=== PATIENT | female | born 1955 | race Caucasian/White ===

== ENCOUNTER → 2018-01-09 | Outpatient (CLI) | payer MEDICARE, OTHER ==
--- NOTE | 2018-01-09 12:43 | CT ---
EXAMINATION TYPE: CT chest wo con DATE OF EXAM: 01/09/2018 COMPARISON: NONE HISTORY: Abnormal Chest Xray CT DLP: 667 mGycm. Automated Exposure Control for Dose Reduction was Utilized. TECHNIQUE: CT scan of the thorax is performed without IV contrast. FINDINGS: LUNGS: There is anterior scarring left upper lobe near axial image 17. There is additional linear s carring near level of lingula coronal image 57. There is additional linear scarring in the inferior l ingula axial image 36. There is some patchy bibasilar linear scarring and/or atelectasis just above d iaphragm bilaterally. No suspicious parenchymal nodule or mass is present. There is no pleural effusi on or pneumothorax seen. The tracheobronchial tree is patent. MEDIASTINUM: Lack of IV contrast is noted to limit evaluation for mediastinal and especially hilar ad enopathy. There are no definitive greater than 1 cm hilar or mediastinal lymph nodes. There are prom inent but subcentimeter lymph nodes in the mediastinum including prevascular, paratracheal, and super ior mediastinal regions. No cardiomegaly or pericardial effusion is seen. Coronary artery calcificati on is present which is noted marker for coronary artery disease. OTHER: Small hiatal hernia is present. Liver is diffusely low dense relative to spleen consistent wit h fatty infiltration. Cholecystectomy clips are noted. There is moderate to severe multilevel spurring in the thoracic spine. Slight scoliotic curvature is present. Prominent posterior spurs are effaces anterior thecal sac in the mid thoracic spine on sagit juan miguel images. IMPRESSION: Chronic parenchymal changes most prominent in the left lung. No acute pulmonary process. No suspicious mass or adenopathy seen.
--- NOTE | 2018-01-09 14:53 | US ---
EXAMINATION TYPE: US kidneys/renal and bladder DATE OF EXAM: 01/09/2018 COMPARISON: NONE CLINICAL HISTORY: E11.65 Type 2 Diabetes Mellitus with hyperglycemia. abnormal labs EXAM MEASUREMENTS: Right Kidney: 11.1 x 4.5 x 4.6 cm Left Kidney: 10.6 x 5.2 x 4.8 cm Right Kidney: No hydronephrosis or masses seen Left Kidney: No hydronephrosis or masses seen Bladder: not well distended Bilateral Jets seen: No Bladder is limited by incomplete distention. No nephrolithiasis. IMPRESSION: No definite acute process. Noted is made that the bladder is nondistended and therefore could not be evaluated.
== END ==
LOC: RADCTMAIN 11:07
PROVIDERS: ATTEND Family Medicine
DX: I10 Essential (primary) hypertension (principal); J98.4 Other disorders of lung; E11.65 Type 2 diabetes mellitus with hyperglycemia
CPT/HCPCS: 71250; 76770

== ENCOUNTER 2018-01-29 03:34 | Inpatient (IN) | payer MEDICARE, OTHER ==
[2018-01-29] MEDS ORDERED: SODIUM CHLORIDE 0.9% 1,000 ML IV STA (03:55)
[2018-01-29] MEDS ORDERED: ONDANSETRON 4 MG/2 ML VIAL IVP STA (03:55)
[2018-01-29] MEDS ORDERED: MORPHINE SULFATE 4 MG/ML SYRINGE IV STA (03:55)
--- NOTE | 2018-01-29 04:05 | ED ---
Abdominal Pain HPI - General Chief Complaint: Abdominal Pain Stated Complaint: Abdominal Pain, Nausea Time Seen by Provider: 01/29/18 03:48 Source: patient, EMS Mode of arrival: EMS Limitations: no limitations - History of Present Illness Initial Comments: 62-year-old female patient presents to the emergency department today for complaints of severe right lower quadrant abdominal pain, diarrhea, and vomiting. Patient states she's been having discomfort to the right lower quadrant for the last 3 weeks. States that her primary care physician ordered imaging but she started becoming more ill today so presented here for further evaluation. Patient states the pain in her lower abdomen is sharp and stabbing. She denies any radiation of the pain to her back. States that she has had 4 episodes of vomiting and approximate 10 loose stools prior to coming in. Patient states that she does have a hemorrhoid which is causing a small amount of blood in the stool. She states she is having some dysuria but denies any hematuria or urinary frequency. Patient denies any fevers or chills. Denies any recent travel or sick contacts. Patient has had cholecystectomy in the past but no other abdominal surgeries. Patient denies any recent rash, shortness breath, chest pain, back pain, numbness, tingling, dizziness, weakness , headache, visual changes, or any other complaints. - Related Data Home Medications Medication Instructions Recorded Confirmed Aspirin 81 mg PO DAILY 09/27/13 10/13/13 Fenofibrate Nanocrystallized 48 mg PO HS 09/27/13 10/13/13 [Fenofibrate] Fluticasone/Salmeterol [Advair 1 puff INHALATION Q12HR PRN 09/27/13 10/13/13 250-50 Diskus] Glimepiride [Amaryl] 4 mg PO [id number] 09/27/13 10/13/13 Lisinopril [Zestril] 2.5 mg PO DAILY 09/27/13 10/13/13 Meclizine [Antivert] 12.5 mg PO DIRECTED PRN 09/27/13 10/13/13 Omeprazole [PriLOSEC] 20 mg PO HS PRN 09/27/13 10/13/13 metFORMIN HCL 1,000 mg PO BID 09/27/13 10/13/13 Allergies Allergy/AdvReac Type Severity Reaction Status Date / Time codeine phosphate Allergy Unknown Unknown Verified 10/13/13 08:04 [From Tylenol-Codeine #3] Review of Systems ROS Statement: Those systems with pertinent positive or pertinent negative responses have been documented in the HPI. ROS Other: All systems not noted in ROS Statement are negative. Past Medical History Past Medical History: Asthma, Diabetes Mellitus, GERD/Reflux, Hyperlipidemia, Hypertension Additional Past Medical History / Comment(s): PROBLEMS WITH "EQUALIBRIUM" History of Any Multi-Drug Resistant Organisms: None Reported Past Surgical History: Cholecystectomy, Orthopedic Surgery Additional Past Surgical History / Comment(s): KNEE CAPS REPLACED BRADEN, D&C, Past Anesthesia/Blood Transfusion Reactions: Motion Sickness, Postoperative Nausea & Vomiting (PONV) Smoking Status: Former smoker Past Alcohol Use History: None Reported Past Drug Use History: None Reported General Exam Limitations: no limitations General appearance: alert, in no apparent distress, other (This well-developed, well-nourished adult female patient in no acute distress. Vital signs upon presentation are temperature 97.5F, pulse 93, respirations 18, blood pressure 147/70, pulse ox 96% on room air.) Eye exam: Present: normal appearance, PERRL, EOMI. Absent: scleral icterus, conjunctival injection, periorbital swelling ENT exam: Present: normal exam, normal oropharynx, mucous membranes moist Respiratory exam: Present: normal lung sounds bilaterally. Absent: respiratory distress, wheezes, rales, rhonchi, stridor Cardiovascular Exam: Present: regular rate, normal rhythm, normal heart sounds. Absent: systolic murmur, diastolic murmur, rubs, gallop, clicks GI/Abdominal exam: Present: soft, tenderness (Right lower quadrant tenderness, midepigastric tenderness), guarding, normal bowel sounds. Absent: distended, rebound, rigid Course Vital Signs 01/29/18 03:41 Temperature 97.5 F L Pulse Rate 93 Respiratory 18 Rate Blood Pressure 147/70 O2 Sat by Pulse 96 Oximetry Medical Decision Making - Medical Decision Making 62-year-old female patient percents to the emergency department today for evaluation of right lower quadrant abdominal pain, vomiting, and diarrhea. Physical examination did reveal exquisite right lower quadrant abdominal tenderness. Labs reviewed and did reveal an elevated white blood cell count at 13.2. Urinalysis was negative for any evidence of infection. Did perform CT the abdomen and pelvis which did show possibility of ileus versus enteritis. Appendix was not well visualized on this exam. With patient's right lower quadrant tenderness there is concern for appendicitis will admit for observation for further evaluation by surgery. - Lab Data Result diagrams: 01/29/18 04:35 01/29/18 04:35 Lab Results 01/29/18 01/29/18 01/29/18 Range/Units 04:35 04:35 04:35 WBC 13.2 H (3.8-10.6) k/uL RBC 4.18 (3.80-5.40) m/uL Hgb 12.6 (11.4-16.0) gm/dL Hct 37.8 (34.0-46.0) % MCV 90.3 (80.0-100.0) fL MCH 30.1 (25.0-35.0) pg MCHC 33.4 (31.0-37.0) g/dL RDW 13.9 (11.5-15.5) % Plt Count 294 (150-450) k/uL Neutrophils % 75 % Lymphocytes % 15 % Monocytes % 5 % Eosinophils % 4 % Basophils % 1 % Neutrophils # 9.9 H (1.3-7.7) k/uL Lymphocytes # 1.9 (1.0-4.8) k/uL Monocytes # 0.6 (0-1.0) k/uL Eosinophils # 0.6 (0-0.7) k/uL Basophils # 0.1 (0-0.2) k/uL Sodium 135 L (137-145) mmol/L Potassium 5.6 H (3.5-5.1) mmol/L Chloride 103 (98-107) mmol/L Carbon Dioxide 24 (22-30) mmol/L Anion Gap 8 mmol/L BUN 17 (7-17) mg/dL Creatinine 0.81 (0.52-1.04) mg/dL Est GFR (CKD-EPI)AfAm >90 (>60 ml/min/1.73 sqM) Est GFR (CKD-EPI)NonAf 79 (>60 ml/min/1.73 sqM) Glucose 178 H (74-99) mg/dL Plasma Lactic Acid David 1.8 (0.7-2.0) mmol/L Calcium 9.8 (8.4-10.2) mg/dL Total Bilirubin 0.7 (0.2-1.3) mg/dL AST 32 (14-36) U/L ALT 26 (9-52) U/L Alkaline Phosphatase 103 (38-126) U/L Total Protein 7.2 (6.3-8.2) g/dL Albumin 3.7 (3.5-5.0) g/dL Amylase 85 (30-110) U/L Lipase 126 (23-300) U/L Urine Color Urine Appearance (Clear) Urine pH (5.0-8.0) Ur Specific [place] (1.001-1.035) Urine Protein (Negative) Urine Glucose (UA) (Negative) Urine Ketones (Negative) Urine Blood (Negative) Urine Nitrite (Negative) Urine Bilirubin (Negative) Urine Urobilinogen (<2.0) mg/dL Ur Leukocyte Esterase (Negative) 01/29/18 Range/Units 06:00 WBC (3.8-10.6) k/uL RBC (3.80-5.40) m/uL Hgb (11.4-16.0) gm/dL Hct (34.0-46.0) % MCV (80.0-100.0) fL MCH (25.0-35.0) pg MCHC (31.0-37.0) g/dL RDW (11.5-15.5) % Plt Count (150-450) k/uL Neutrophils % % Lymphocytes % % Monocytes % % Eosinophils % % Basophils % % Neutrophils # (1.3-7.7) k/uL Lymphocytes # (1.0-4.8) k/uL Monocytes # (0-1.0) k/uL Eosinophils # (0-0.7) k/uL Basophils # (0-0.2) k/uL Sodium (137-145) mmol/L Potassium (3.5-5.1) mmol/L Chloride (98-107) mmol/L Carbon Dioxide (22-30) mmol/L Anion Gap mmol/L BUN (7-17) mg/dL Creatinine (0.52-1.04) mg/dL Est GFR (CKD-EPI)AfAm (>60 ml/min/1.73 sqM) Est GFR (CKD-EPI)NonAf (>60 ml/min/1.73 sqM) Glucose (74-99) mg/dL Plasma Lactic Acid David (0.7-2.0) mmol/L Calcium (8.4-10.2) mg/dL Total Bilirubin (0.2-1.3) mg/dL AST (14-36) U/L ALT (9-52) U/L Alkaline Phosphatase (38-126) U/L Total Protein (6.3-8.2) g/dL Albumin (3.5-5.0) g/dL Amylase (30-110) U/L Lipase (23-300) U/L Urine Color Yellow Urine Appearance Clear (Clear) Urine pH 5.0 (5.0-8.0) Ur Specific [place] 1.027 (1.001-1.035) Urine Protein Negative (Negative) Urine Glucose (UA) Negative (Negative) Urine Ketones Negative (Negative) Urine Blood Negative (Negative) Urine Nitrite Negative (Negative) Urine Bilirubin Negative (Negative) Urine Urobilinogen <2.0 (<2.0) mg/dL Ur Leukocyte Esterase Negative (Negative) - Radiology Data Radiology results: report reviewed, image reviewed CT abdomen and pelvis with contrast was obtained. Report is reviewed in its entirety. Impression by Dr. Avina reports nonspecific bowel gas pattern with scattered air-fluid levels seen in the small and large bowel loops which may reflect mild ileus. Scattered thickened small bowel loops which may reflect enteritis. Appendix not well visualized. There is concern for acute appendicitis consider repeating image with oral contrast. Disposition Clinical Impression: Abdominal pain, Gastroenteritis Narrative: Possible Appendicitis Disposition: ADMITTED IP TO THIS [facility] Condition: Serious Referrals: Rochelle Parrish MD [Primary Care Provider] - 1-2 days Decision to Admit Reason: Admit from EC Decision Date: 01/29/18 Decision Time: 06:48
[2018-01-29 05:00] LABS: Basophils # (A) 0.1 k/uL (0-0.2); Basophils % (A) 1 %; Eosinophils # (A) 0.6 k/uL (0-0.7); Eosinophils % (A) 4 %; HCT 37.8 % (34.0-46.0); HGB 12.6 gm/dL (11.4-16.0); Lymphocytes # (A) 1.9 k/uL (1.0-4.8); Lymphocytes % (A) 15 %; MCH 30.1 pg (25.0-35.0); MCHC 33.4 g/dL (31.0-37.0); MCV 90.3 fL (80.0-100.0); Mean Platelet Volume 8.2; Monocytes # (A) 0.6 k/uL (0-1.0); Monocytes % (A) 5 %; Neutrophils # (A) 9.9 k/uL (1.3-7.7); Neutrophils % (A) 75 %; Platelet Count 294 k/uL (150-450); RBC 4.18 m/uL (3.80-5.40); RDW 13.9 % (11.5-15.5); WBC 13.2 k/uL (3.8-10.6)
[2018-01-29 05:22] LABS: ALT 26 U/L (9-52); AST 32 U/L (14-36); Albumin 3.7 g/dL (3.5-5.0); Alkaline Phosphatase 103 U/L (38-126); Amylase 85 U/L (30-110); Anion Gap 8 mmol/L; Blood Urea Nitrogen 17 mg/dL (7-17); Calcium 9.8 mg/dL (8.4-10.2); Carbon Dioxide 24 mmol/L (22-30); Chloride 103 mmol/L (98-107); Glucose 178 mg/dL (74-99); Lipase 126 U/L (23-300); Sodium 135 mmol/L (137-145); Total Bilirubin 0.7 mg/dL (0.2-1.3); Total Protein 7.2 g/dL (6.3-8.2)
[2018-01-29 05:39] LABS: Potassium 5.6 mmol/L (3.5-5.1)
--- NOTE | 2018-01-29 06:21 | CT ---
EXAM: CT Abdomen and Pelvis With Intravenous Contrast CLINICAL HISTORY: ITS.REASON CT Reason: abdominal pain TECHNIQUE: Axial computed tomography images of the abdomen and pelvis with intravenous contrast. CTDI is 23.4, 24.2 mGy and DLP is 1850.9 mGy-cm. This CT exam was performed using one or more of the following dose reduction techniques: automated exposure control, adjustment of the mA and/or kV according to patient size, and/or use of iterative reconstruction technique. COMPARISON: No relevant prior studies available. FINDINGS: Lung bases: Streaky density in the visualized lingula likely atelectasis. ABDOMEN: Liver: Fatty liver. Gallbladder and bile ducts: Status post cholecystectomy. No ductal dilation. Pancreas: Unremarkable. No mass. No ductal dilation. Spleen: Unremarkable. No splenomegaly. Adrenals: Unremarkable. No mass. Kidneys and ureters: Mild nonspecific soft tissue stranding in the perinephric space. Stomach and bowel: Diverticulosis. Thickening of proximal small bowel loop in the left upper abdomen. Additional thickened small bowel loops in the right lower abdomen with adjacent soft tissue stranding and fluid along the right lower mesentery. These findings are nonspecific. These may reflect inflammatory/infectious enteritis. Appendix is not well visualized. If there is concern for acute appendicitis, consider repeat imaging with oral contrast for better visualization. Scattered air-fluid levels in small and large bowel loops, nonspecific. PELVIS: Appendix: Appendix not well visualized. Bladder: Unremarkable. No mass. Reproductive: Unremarkable as visualized. ABDOMEN and PELVIS: Intraperitoneal space: No free air. No significant fluid collection. Bones/joints: Degenerative changes in the visualized spine. No acute fracture. No dislocation. Soft tissues: Unremarkable. Vasculature: Unremarkable. No abdominal aortic aneurysm. Lymph nodes: Unremarkable. No enlarged lymph nodes. IMPRESSION: Nonspecific bowel gas pattern with scattered air-fluid levels seen in small and large bowel loops which may reflect mild ileus. Scattered thickened small bowel loops which may reflect enteritis. Appendix not well visualized. If there is concern for acute appendicitis, consider repeat imaging with oral contrast. No free air
[2018-01-29 06:36] LABS: Appearance,Urine Clear (Clear); Bilirubin,Urine Negative (Negative); Blood,Urine Negative (Negative); Color,Urine Yellow; Glucose,Urine (UA) Negative (Negative); Ketones,Urine Negative (Negative); Leukocyte Esterase,Urine Negative (Negative); Nitrite,Urine Negative (Negative); Protein,Urine Negative (Negative); Specific Gravity,Urine 1.027 (1.001-1.035); Urobilinogen,Urine <2.0 mg/dL (<2.0)
[2018-01-29] MEDS ORDERED: NALOXONE 0.4 MG/ML 1 ML VIAL IV PRN (06:43)
[2018-01-29] MEDS ORDERED: FAMOTIDINE 20 MG/2 ML VIAL IV STA (06:48)
[2018-01-29] MEDS: SODIUM CHLORIDE 0.9% 1,000 ML IV SCH (07:39)
[2018-01-29] MEDS: ONDANSETRON 4 MG/2 ML VIAL IVP PRN (08:27)
[2018-01-29] MEDS ORDERED: IOPAMIDOL-300 CONTRAST 30 ML VIAL (ORAL USE) PO PRN (09:29)
--- NOTE | 2018-01-29 09:29 | P.GSCN ---
<Fariba Dave - Last Filed: 01/29/18 14:01> History of Present Illness Consult date: 01/29/18 Reason for Consult: Abdominal pain History of present illness: 62-year-old female presented to the emergency room on the day of admission with a chief complaint of developing persistent right lower quadrant abdominal pain associated with nausea vomiting diarrhea. Patient stated that the discomfort in the right lower quadrant started about 3 weeks ago became more symptomatic. Patient stated that prior to coming into the emergency room she had at least 10 watery loose stools. Patient denied any pain with the loose stools also denied any bright red blood in the toilet bowl. Patient states that she was told she had hemorrhoids and some of the stools may have had a small amount of blood in. Patient denied any prior episodes. Patient states that she had been started on an antibiotic 10 days prior for bronchitis. At The time of my exam patient has tenderness to the right lower quadrant which patient reports is worse with movement Currently patient states a nausea sensation has improved due to the anti- emetics but continues to have tenderness in the right lower quadrant of the abdomen. Past surgical history cholecystectomy greater than 20 years prior Patient had a CAT scan of the abdomen pelvis with IV contrast done on January 29 reviewing the report no free air appendix not well visualized scattered thickening of small bowel loops which may reflect enteritis white count 13.2 potassium 5.6 AST ALT not elevated total bili 0.7 urinalysis negative lipase 126 amylase 85 Review of Systems Essentially unremarkable except as mentioned in the present illness Past Medical History Past Medical History: Asthma, Diabetes Mellitus, GERD/Reflux, Hyperlipidemia, Hypertension Additional Past Medical History / Comment(s): PROBLEMS WITH "EQUALIBRIUM" History of Any Multi-Drug Resistant Organisms: None Reported Past Surgical History: Cholecystectomy, Orthopedic Surgery Additional Past Surgical History / Comment(s): KNEE CAPS REPLACED BRADEN, D&C, Past Anesthesia/Blood Transfusion Reactions: Motion Sickness, Postoperative Nausea & Vomiting (PONV) Smoking Status: Former smoker Past Alcohol Use History: None Reported Past Drug Use History: None Reported - Past Family History Mother Family Medical History: Cancer, CVA/TIA, Diabetes Mellitus Additional Family Medical History / Comment(s): bowel ca Medications and Allergies Home Medications Medication Instructions Recorded Confirmed Type metFORMIN HCL 1,000 mg PO BID 09/27/13 01/29/18 History Acetaminophen Tab [Tylenol Tab] 500 mg PO Q6HR PRN 01/29/18 01/29/18 History Albuterol Inhaler [Ventolin Hfa 2 puff INHALATION RT-Q6H PRN 01/29/18 01/29/18 History Inhaler] Albuterol Nebulized [Ventolin 2.5 mg INHALATION RT-TID PRN 01/29/18 01/29/18 History Nebulized] Allopurinol [Zyloprim] 100 mg PO DAILY 01/29/18 01/29/18 History Atorvastatin [Lipitor] 20 mg PO HS 01/29/18 01/29/18 History Budesonide/Formoterol Fumarate 2 puff INHALATION RT-BID 01/29/18 01/29/18 History [Symbicort 80-4.5 Mcg Inhaler] Lisinopril [Zestril] 20 mg PO DAILY 01/29/18 01/29/18 History Baldwin-3 Acid Ethyl Esters [Lovaza] 4 gm PO BID 01/29/18 01/29/18 History Omeprazole 20 mg PO HS 01/29/18 01/29/18 History Ranitidine HCl [Zantac] 150 mg PO BID 01/29/18 01/29/18 History Allergies Allergy/AdvReac Type Severity Reaction Status Date / Time codeine phosphate Allergy Unknown Unknown Verified 01/29/18 07:18 [From Tylenol-Codeine #3] Surgical - Exam Vital Signs Temp Pulse Resp BP Pulse Ox 97.5 F L 93 18 147/70 96 01/29/18 03:41 01/29/18 03:41 01/29/18 03:41 01/29/18 03:41 01/29/18 03:41 GENERAL APPEARANCE: patient is alert, oriented, in no acute distress. VITAL SIGNS: Reviewed HEENT: Head is normocephalic and atraumatic. Pupils are equal and reactive. The nares are patent. Oropharynx is clear without lesions. NECK: Supple without lymphadenopathy. Traches midline. HEART: S1, S2. Regular rate and rhythm. Denying chest pain no murmur LUNGS: No crackles or wheezes are heard. Adequate air movement bilaterally no shortness of breath ABDOMEN: Soft, positive mild tenderness right lower quadrant of the abdomen nondistended with active bowel sounds. No peritoneal signs. No palpable organomegaly or masses. Reports a nausea sensation no emesis reportedly having loose stools this morning EXTREMITIES: Normal skin color and turgor. No cyanosis, rash, ulceration, clubbing or edema. Radial pedal pulses are 2/4 bilaterally. NEUROLOGICAL: No focal deficits. Strength and sensation are grossly intact. Results - Labs 01/29/18 04:35 01/29/18 04:35 Abnormal Lab Results - Last 24 Hours (Table) 01/29/18 01/29/18 Range/Units 04:35 04:35 WBC 13.2 H (3.8-10.6) k/uL Neutrophils # 9.9 H (1.3-7.7) k/uL Sodium 135 L (137-145) mmol/L Potassium 5.6 H (3.5-5.1) mmol/L Glucose 178 H (74-99) mg/dL Diabetes panel 01/29/18 Range/Units 04:35 Sodium 135 L (137-145) mmol/L Potassium 5.6 H (3.5-5.1) mmol/L Chloride 103 (98-107) mmol/L Carbon Dioxide 24 (22-30) mmol/L BUN 17 (7-17) mg/dL Creatinine 0.81 (0.52-1.04) mg/dL Glucose 178 H (74-99) mg/dL Calcium 9.8 (8.4-10.2) mg/dL AST 32 (14-36) U/L ALT 26 (9-52) U/L Alkaline Phosphatase 103 (38-126) U/L Total Protein 7.2 (6.3-8.2) g/dL Albumin 3.7 (3.5-5.0) g/dL Calcium panel 01/29/18 Range/Units 04:35 Calcium 9.8 (8.4-10.2) mg/dL Albumin 3.7 (3.5-5.0) g/dL Pituitary panel 01/29/18 Range/Units 04:35 Sodium 135 L (137-145) mmol/L Potassium 5.6 H (3.5-5.1) mmol/L Chloride 103 (98-107) mmol/L Carbon Dioxide 24 (22-30) mmol/L BUN 17 (7-17) mg/dL Creatinine 0.81 (0.52-1.04) mg/dL Glucose 178 H (74-99) mg/dL Calcium 9.8 (8.4-10.2) mg/dL Adrenal panel 01/29/18 Range/Units 04:35 Sodium 135 L (137-145) mmol/L Potassium 5.6 H (3.5-5.1) mmol/L Chloride 103 (98-107) mmol/L Carbon Dioxide 24 (22-30) mmol/L BUN 17 (7-17) mg/dL Creatinine 0.81 (0.52-1.04) mg/dL Glucose 178 H (74-99) mg/dL Calcium 9.8 (8.4-10.2) mg/dL Total Bilirubin 0.7 (0.2-1.3) mg/dL AST 32 (14-36) U/L ALT 26 (9-52) U/L Alkaline Phosphatase 103 (38-126) U/L Total Protein 7.2 (6.3-8.2) g/dL Albumin 3.7 (3.5-5.0) g/dL Assessment and Plan Assessment: Impression Present on admission right lower quadrant abdominal pain with nausea vomiting possible due to ileus or enteritis History of a cholecystectomy 20 years prior Morbid obesity BMI 44 Present on admission leukocytosis suspect reactive Present on admission hyperkalemia History of frequent loose stools just completed a 10 day course antibiotics for bronchitis CAT scan abdomen and pelvis with IV contrast no free air appendix not well visualized scattered thickened small bowel loops may reflect enteritis Plan Increase IV fluid to 125 an hour Keep nothing by mouth Antiemetics as ordered Stool for C. diff DVT and GI prophylaxis Further surgical recommendations pending We'll repeat the computed tomography scan of the abdomen pelvis with oral contrast and follow up on results could not be done today due to IV contrast given the day before Surgical consultation note dictated for Dr. Benavidez The above impression and plan of care have been discussed and directed by signing physician. Fariba Dave nurse practitioner acting as scribe for signing physician. <Tavia Benavidez - Last Filed: 01/29/18 16:58> Surgical - Exam Vital Signs Temp Pulse Resp BP Pulse Ox 97.5 F L 93 18 147/70 96 01/29/18 03:41 01/29/18 03:41 01/29/18 03:41 01/29/18 03:41 01/29/18 03:41 Results - Labs 01/29/18 04:35 01/29/18 04:35 Abnormal Lab Results - Last 24 Hours (Table) 01/29/18 01/29/18 01/29/18 Range/Units 04:35 04:35 12:14 WBC 13.2 H (3.8-10.6) k/uL Neutrophils # 9.9 H (1.3-7.7) k/uL Sodium 135 L (137-145) mmol/L Potassium 5.6 H (3.5-5.1) mmol/L Glucose 178 H (74-99) mg/dL POC Glucose (mg/dL) 129 H (75-99) mg/dL Diabetes panel 01/29/18 Range/Units 04:35 Sodium 135 L (137-145) mmol/L Potassium 5.6 H (3.5-5.1) mmol/L Chloride 103 (98-107) mmol/L Carbon Dioxide 24 (22-30) mmol/L BUN 17 (7-17) mg/dL Creatinine 0.81 (0.52-1.04) mg/dL Glucose 178 H (74-99) mg/dL Calcium 9.8 (8.4-10.2) mg/dL AST 32 (14-36) U/L ALT 26 (9-52) U/L Alkaline Phosphatase 103 (38-126) U/L Total Protein 7.2 (6.3-8.2) g/dL Albumin 3.7 (3.5-5.0) g/dL Calcium panel 01/29/18 Range/Units 04:35 Calcium 9.8 (8.4-10.2) mg/dL Albumin 3.7 (3.5-5.0) g/dL Pituitary panel 01/29/18 Range/Units 04:35 Sodium 135 L (137-145) mmol/L Potassium 5.6 H (3.5-5.1) mmol/L Chloride 103 (98-107) mmol/L Carbon Dioxide 24 (22-30) mmol/L BUN 17 (7-17) mg/dL Creatinine 0.81 (0.52-1.04) mg/dL Glucose 178 H (74-99) mg/dL Calcium 9.8 (8.4-10.2) mg/dL Adrenal panel 01/29/18 Range/Units 04:35 Sodium 135 L (137-145) mmol/L Potassium 5.6 H (3.5-5.1) mmol/L Chloride 103 (98-107) mmol/L Carbon Dioxide 24 (22-30) mmol/L BUN 17 (7-17) mg/dL Creatinine 0.81 (0.52-1.04) mg/dL Glucose 178 H (74-99) mg/dL Calcium 9.8 (8.4-10.2) mg/dL Total Bilirubin 0.7 (0.2-1.3) mg/dL AST 32 (14-36) U/L ALT 26 (9-52) U/L Alkaline Phosphatase 103 (38-126) U/L Total Protein 7.2 (6.3-8.2) g/dL Albumin 3.7 (3.5-5.0) g/dL
[2018-01-29 09:57] VITALS: BMI 44.3
[2018-01-29 12:18] LABS: Glucose,Whole Blood 129 mg/dL (75-99)
[2018-01-29] MEDS ORDERED: MORPHINE SULFATE 4 MG/ML SYRINGE IVP PRN (13:33)
--- NOTE | 2018-01-29 14:27 | P.HPIM ---
History of Present Illness 68-year-old pleasant female came in with the epigastric abdominal burning sensation which is started yesterday episode with nausea associated with food severe pain denied any fever chills nonradiating pain burning sensation. Patient was also comparing of right groin pain which is also severe has been going on for 3 weeks patient is morbidly obese doesn't have any skinfold fungal infections, there is no limitation in the movement of his right her right hip patient denied any fever chills, vomiting diarrhea, denied dysuria today. Review of Systems REVIEW OF SYSTEMS: CONSTITUTIONAL: No fever, no malaise, no fatigue. HEENT: No recent visual problems or hearing problems. Denied any sore throat. CARDIOVASCULAR: No chest pain, orthopnea, PND, no palpitations, no syncope. PULMONARY: No shortness of breath, no hemoptysis. GASTROINTESTINAL: As mentioned in HPI NEUROLOGICAL: No headaches, no weakness, no numbness. HEMATOLOGICAL: Denies any bleeding or petechiae. GENITOURINARY: Denies any burning micturition, frequency, or urgency. MUSCULOSKELETAL/RHEUMATOLOGICAL: Denies any joint pain, swelling, or any muscle pain. ENDOCRINE: Denies any polyuria or polydipsia. The rest of the 14-point review of systems is negative. Past Medical History Past Medical History: Asthma, Diabetes Mellitus, GERD/Reflux, Hyperlipidemia, Hypertension Additional Past Medical History / Comment(s): PROBLEMS WITH "EQUALIBRIUM" History of Any Multi-Drug Resistant Organisms: None Reported Past Surgical History: Cholecystectomy, Orthopedic Surgery Additional Past Surgical History / Comment(s): KNEE CAPS REPLACED BRADEN, D&C, Past Anesthesia/Blood Transfusion Reactions: Motion Sickness, Postoperative Nausea & Vomiting (PONV) Smoking Status: Former smoker Past Alcohol Use History: None Reported Past Drug Use History: None Reported - Past Family History Mother Family Medical History: Cancer, CVA/TIA, Diabetes Mellitus Additional Family Medical History / Comment(s): bowel ca Medications and Allergies Home Medications Medication Instructions Recorded Confirmed Type metFORMIN HCL 1,000 mg PO BID 09/27/13 01/29/18 History Acetaminophen Tab [Tylenol Tab] 500 mg PO Q6HR PRN 01/29/18 01/29/18 History Albuterol Inhaler [Ventolin Hfa 2 puff INHALATION RT-Q6H PRN 01/29/18 01/29/18 History Inhaler] Albuterol Nebulized [Ventolin 2.5 mg INHALATION RT-TID PRN 01/29/18 01/29/18 History Nebulized] Allopurinol [Zyloprim] 100 mg PO DAILY 01/29/18 01/29/18 History Atorvastatin [Lipitor] 20 mg PO HS 01/29/18 01/29/18 History Budesonide/Formoterol Fumarate 2 puff INHALATION RT-BID 01/29/18 01/29/18 History [Symbicort 80-4.5 Mcg Inhaler] Lisinopril [Zestril] 20 mg PO DAILY 01/29/18 01/29/18 History [place]-3 Acid Ethyl Esters [Lovaza] 4 gm PO BID 01/29/18 01/29/18 History Omeprazole 20 mg PO HS 01/29/18 01/29/18 History Ranitidine HCl [Zantac] 150 mg PO BID 01/29/18 01/29/18 History Allergies Allergy/AdvReac Type Severity Reaction Status Date / Time codeine phosphate Allergy Unknown Unknown Verified 01/29/18 07:18 [From Tylenol-Codeine #3] Physical Exam Vitals: Vital Signs Temp Pulse Pulse Resp BP BP Pulse Ox 01/29/18 08:17 97.4 F L 97 16 153/73 93 L 01/29/18 07:52 97.9 F 88 18 123/56 96 01/29/18 04:45 17 01/29/18 03:41 97.5 F L 93 18 147/70 96 Intake and Output 01/28/18 01/29/18 01/29/18 22:59 06:59 14:59 Other: Weight 108.409 kg 109.9 kg PHYSICAL EXAMINATION: GENERAL: The patient is alert and oriented x3, not in any acute distress. Well developed, well nourished. HEENT: Pupils are round and equally reacting to light. EOMI. No scleral icterus. No conjunctival pallor. Normocephalic, atraumatic. No pharyngeal erythema. No thyromegaly. CARDIOVASCULAR: S1 and S2 present. No murmurs, rubs, or gallops. PULMONARY: Minimal expiratory wheezing on exam ABDOMEN: Soft, nontender, nondistended, normoactive bowel sounds. No palpable organomegaly. Patient doesn't have any significant the skinfold fungal infections but does some have redness in the skinfold areas for which we'll use nystatin powder MUSCULOSKELETAL: No joint swelling or deformity. EXTREMITIES: No cyanosis, clubbing, or pedal edema. NEUROLOGICAL: Gross neurological examination did not reveal any focal deficits. SKIN: No rashes. Results CBC & Chem 7: 01/29/18 04:35 01/29/18 04:35 Labs: Abnormal Lab Results - Last 24 Hours (Table) 01/29/18 01/29/18 01/29/18 Range/Units 04:35 04:35 12:14 WBC 13.2 H (3.8-10.6) k/uL Neutrophils # 9.9 H (1.3-7.7) k/uL Sodium 135 L (137-145) mmol/L Potassium 5.6 H (3.5-5.1) mmol/L Glucose 178 H (74-99) mg/dL POC Glucose (mg/dL) 129 H (75-99) mg/dL Thrombosis Risk Factor Assmnt - Choose All That Apply Any of the Below Risk Factors Present?: Yes Each Factor Represents 1 point: Obesity (BMI >25) Each Risk Factor Represents 2 Points: Age 61-74 years Other congenital or acquired thrombophilia - If yes, enter type in comment: No Thrombosis Risk Factor Assessment Total Risk Factor Score: 3 Thrombosis Risk Factor Assessment Level: Moderate Risk Assessment and Plan Plan: -Epigastric abdominal burning sensation probably due to gastritis and patient will be started on Protonix for this. -Right groin pain we'll obtain ultrasound to rule out any vascular etiologies for her pain in the right groin patient denied any back pain we'll also obtain a x-ray of the hip and right groin area to see there is any hip pathology. Patient had a CAT scan of the abdomen which did not show any significant abnormality and the's general surgery is also following the patient -Type 2 diabetes mellitus -hyperlipidemia -Hypertension -COPD with mild acute exacerbation nicotine cessation counseling was provided and patient is still wheezing on exam patient will be started on inhaled steroids and inhalational treatments and his see if that improves her symptoms patient appears to have some bronchitis with greenish sputum production for which patient will be started on azithromycin if her symptoms doesn't improve by tomorrow on inhaled steroids patient will need a low-dose oral steroids. Although there is no significant shortness of breath she complains of
--- NOTE | 2018-01-29 15:16 | US ---
EXAMINATION TYPE: US groin RT DATE OF EXAM: 01/29/2018 COMPARISON: NONE CLINICAL HISTORY: pain in groin. Pain in right groin x few weeks. Right groin and area of pain scanned. Free fluid visualized. Peristalsing bowel seen. Contralateral image taken. IMPRESSION: Small amount of free fluid is seen in the region of the right groin. There is peristalsi ng bowel and therefore, bowel hernia was be in the differential diagnosis. CT scan recommended.
--- NOTE | 2018-01-29 15:36 | XR ---
EXAMINATION TYPE: XR Hip RT and AP Pelvis DATE OF EXAM: 01/29/2018 COMPARISON: NONE HISTORY: Pain TECHNIQUE: A single AP view of the pelvis is obtained. Two views of the right hip are obtained. FINDINGS: There is contrast within the bladder and surrounding SPECT to phleboliths. Arthropathy of the hips. SI joints are symmetric. Moderate axial narrowing of the joint spaces. Vascular calcificati on seen. No acute fracture or dislocation. IMPRESSION: 1. Arthropathy with no definite acute fracture or dislocation.
[2018-01-29] MEDS: ACETAMINOPHEN IV (For NPO) 1,000 MG in EMPTY BAG 1 BAG IVPB PRN ×2 (15:38→21:28)
[2018-01-29] MEDS: AZITHROMYCIN 500 MG TAB PO SCH (15:39)
[2018-01-29] MEDS: PANTOPRAZOLE 40 MG/10 ML VIAL IVP SCH ×2 (16:43→20:17)
[2018-01-29 17:39] LABS: Glucose,Whole Blood 100 mg/dL (75-99)
[2018-01-29] MEDS: INSULIN ASPART 100 UNIT/ML 1 ML 10 ML VIAL SQ SCH ×2 (17:55→20:30)
[2018-01-29] MEDS: ATORVASTATIN 20 MG TAB PO SCH (20:17)
[2018-01-29] MEDS: ALBUTEROL NEBULIZED 2.5 MG/3 ML INHALATION PRN (20:21)
[2018-01-29] MEDS: SYMBICORT 80-4.5 MCG INHALER INHALATION SCH (20:21)
[2018-01-29 20:28] LABS: Glucose,Whole Blood 167 mg/dL (75-99)
[2018-01-29] MEDS ORDERED: PANTOPRAZOLE 40 MG TABLET PO SCH (21:00)
[2018-01-29 21:41] LABS: Hemoglobin A1C 7.2 % (4.0-6.0)
[2018-01-30 06:46] LABS: Glucose,Whole Blood 121 mg/dL (75-99)
[2018-01-30] MEDS: SODIUM CHLORIDE 0.9% 1,000 ML IV SCH ×4 (06:49→16:12)
[2018-01-30 07:54] LABS: HCT 35.1 % (34.0-46.0); HGB 11.1 gm/dL (11.4-16.0); MCH 29.2 pg (25.0-35.0); MCHC 31.7 g/dL (31.0-37.0); MCV 91.9 fL (80.0-100.0); Mean Platelet Volume 7.9; Platelet Count 240 k/uL (150-450); RBC 3.82 m/uL (3.80-5.40); WBC 8.7 k/uL (3.8-10.6)
[2018-01-30 07:55] LABS: Albumin 3.1 g/dL (3.5-5.0); Calcium 8.8 mg/dL (8.4-10.2); Potassium 4.8 mmol/L (3.5-5.1); Total Bilirubin 0.5 mg/dL (0.2-1.3); Total Protein 6.2 g/dL (6.3-8.2)
[2018-01-30] MEDS: INSULIN ASPART 100 UNIT/ML 1 ML 10 ML VIAL SQ SCH ×4 (08:07→21:19)
--- NOTE | 2018-01-30 08:35 | P.PN ---
Progress Note - Text Progress Note Date: 01/29/18 Patient clinical history highly suspicious for right-sided colitis. Computed tomography scan also demonstrating inflammation of the ascending colon. Separate right inguinal hernia identified. Recommend CT with oral contrast for better delineation. Adjust antibiotics to include Flagyl.
[2018-01-30] MEDS: SYMBICORT 80-4.5 MCG INHALER INHALATION SCH ×2 (09:03→19:34)
--- NOTE | 2018-01-30 09:22 | P.PN ---
<Fariba Dave - Last Filed: 01/30/18 09:18> Subjective Progress Note Date: 01/30/18 62-year-old female seen at bedside patient reports having right groin discomfort. Scheduled today for a computed tomography scan abdomen and pelvis with oral contrast. States no stool reports no nausea vomiting. Sitting up on the edge of the bed appears in no acute distress. Objective - Vital Signs Vital signs: Vital Signs Temp 97.4 F L 01/30/18 07:40 Pulse 72 01/30/18 07:40 Resp 16 01/30/18 07:40 BP 128/68 01/30/18 07:40 Pulse Ox 93 L 01/30/18 07:40 Intake & Output 01/29/18 01/30/18 01/30/18 18:59 06:59 18:59 Intake Total 200 Balance 200 Weight 109.9 kg Intake: Oral 200 Other: Voiding Method Toilet - Exam Physical exam 62-year-old female sitting up on the edge of the bed appears in no acute distress Lungs bilateral prolonged expiratory wheezing noted no cough noted no shortness of breath Heart S1-S2 audible regular Abdomen obese soft nondistended nontender reports having right groin discomfort bowel tones present no stool no reports of nausea vomiting Extremities no edema - Labs CBC & Chem 7: 01/30/18 06:43 01/30/18 06:43 Labs: Abnormal Lab Results - Last 24 Hours (Table) 01/29/18 01/29/18 01/29/18 Range/Units 04:35 12:14 17:17 Hgb (11.4-16.0) gm/dL Chloride (98-107) mmol/L Glucose (74-99) mg/dL POC Glucose (mg/dL) 129 H 100 H (75-99) mg/dL Hemoglobin A1c 7.2 H (4.0-6.0) % Total Protein (6.3-8.2) g/dL Albumin (3.5-5.0) g/dL 01/29/18 01/30/18 01/30/18 Range/Units 20:26 06:42 06:43 Hgb (11.4-16.0) gm/dL Chloride 108 H (98-107) mmol/L Glucose 112 H (74-99) mg/dL POC Glucose (mg/dL) 167 H 121 H (75-99) mg/dL Hemoglobin A1c (4.0-6.0) % Total Protein 6.2 L (6.3-8.2) g/dL Albumin 3.1 L (3.5-5.0) g/dL 01/30/18 Range/Units 06:43 Hgb 11.1 L (11.4-16.0) gm/dL Chloride (98-107) mmol/L Glucose (74-99) mg/dL POC Glucose (mg/dL) (75-99) mg/dL Hemoglobin A1c (4.0-6.0) % Total Protein (6.3-8.2) g/dL Albumin (3.5-5.0) g/dL Assessment and Plan Assessment: Impression Present on admission right lower quadrant abdominal pain with nausea vomiting highly suspicious for right-sided colitis History of a cholecystectomy 20 years prior Morbid obesity BMI 44 Present on admission leukocytosis suspect reactive Present on admission hyperkalemia History of frequent loose stools just completed a 10 day course antibiotics for bronchitis CAT scan abdomen and pelvis with IV contrast no free air appendix not well visualized scattered thickened small bowel loops may reflect enteritis CAT scan abdomen pelvis with IV contrast done on the third report indicate inflammation of the ascending colon Right inguinal hernia identified Plan Follow up on CT abdomen pelvis oral contrast Antiemetics as ordered Stool for C. diff DVT and GI prophylaxis Further surgical recommendations pending The above impression and plan of care have been discussed and directed by signing physician. Fariba Dave nurse practitioner acting as scribe for signing physician. <Tavia Benavidez - Last Filed: 01/30/18 20:39> Objective - Vital Signs Vital signs: Vital Signs Temp 97.9 F 01/30/18 15:46 Pulse 75 01/30/18 15:46 Resp 18 01/30/18 15:46 BP 143/76 01/30/18 15:46 Pulse Ox 92 L 01/30/18 15:46 Intake & Output 01/30/18 01/30/18 01/31/18 06:59 18:59 06:59 Intake Total 422 Balance 422 Intake: Oral 422 Other: Voiding Method Toilet Toilet - Labs CBC & Chem 7: 01/30/18 06:43 01/30/18 06:43 Labs: Abnormal Lab Results - Last 24 Hours (Table) 01/29/18 01/30/1801/30/18 Range/Units 04:35 06:42 06:43 Hgb (11.4-16.0) gm/dL D-Dimer (<0.60) mg/L FEU Chloride 108 H (98-107) mmol/L Glucose 112 H (74-99) mg/dL POC Glucose (mg/dL) 121 H (75-99) mg/dL Hemoglobin A1c 7.2 H (4.0-6.0) % Total Protein 6.2 L (6.3-8.2) g/dL Albumin 3.1 L (3.5-5.0) g/dL 01/30/18 01/30/18 01/30/18 Range/Units 06:43 12:21 16:45 Hgb 11.1 L (11.4-16.0) gm/dL D-Dimer 6.77 H (<0.60) mg/L FEU Chloride (98-107) mmol/L Glucose (74-99) mg/dL POC Glucose (mg/dL) 122 H (75-99) mg/dL Hemoglobin A1c (4.0-6.0) % Total Protein (6.3-8.2) g/dL Albumin (3.5-5.0) g/dL 01/30/18 Range/Units 17:22 Hgb (11.4-16.0) gm/dL D-Dimer (<0.60) mg/L FEU Chloride (98-107) mmol/L Glucose (74-99) mg/dL POC Glucose (mg/dL) 120 H (75-99) mg/dL Hemoglobin A1c (4.0-6.0) % Total Protein (6.3-8.2) g/dL Albumin (3.5-5.0) g/dL Assessment and Plan Plan: CT of the abdomen and pelvis reviewed with oral contrast. Findings are consistent with no evidence of appendicitis. Likely resolving colitis. 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 This may be causing the patient's pain. No general surgical intervention needed. Vascular studies reviewed. Patient clear from a general surgery standpoint for discharge once cleared by medicine. Also may benefit from GI assessment for chronic colitis.
[2018-01-30] MEDS ORDERED: IOPAMIDOL-300 CONTRAST 30 ML VIAL (ORAL USE) PO PRN (09:57)
[2018-01-30] MEDS: AZITHROMYCIN 500 MG TAB PO SCH (10:06)
[2018-01-30] MEDS: ALLOPURINOL 100 MG TAB PO SCH (10:06)
[2018-01-30] MEDS: ACETAMINOPHEN TAB 325 MG TAB PO PRN ×2 (11:35→21:44)
--- NOTE | 2018-01-30 11:35 | CT ---
EXAMINATION TYPE: CT abdomen pelvis w con DATE OF EXAM: 01/30/2018 HISTORY: Persistent right lower quadrant pain CT DLP: 1610mGycm Automated Exposure Control for Dose Reduction was Utilized. CONTRAST: CT scan of the abdomen and pelvis is performed with IV Contrast, patient injected with 100 mL of Isov ue 300. COMPARISON: None. FINDINGS: LUNG BASES: No significant abnormality is appreciated. LIVER/GB: Hepatic parenchyma is diffusely hypoattenuated in comparison to that of the spleen, most co mmonly seen in hepatic steatosis. This finding limits evaluation for hepatic masses. No gross evidenc e of hepatic mass is seen. No intrahepatic biliary ductal dilatation. Gallbladder surgically absent. PANCREAS: No significant abnormality is seen. SPLEEN: No significant abnormality is seen. ADRENALS: No significant abnormality is seen. KIDNEYS: There is a small exophytic probable renal cyst from the right lower pole measuring 8 mm. Lef t-sided extrarenal pelvis is incidentally seen. Mild bilateral nonspecific perinephric fat stranding is present. BOWEL: No dilated large or small bowel. Few sigmoid diverticula are seen without acute pericolonic fa t stranding. UTERUS/ADNEXA: No gross abnormality seen of the uterus or adnexa. The right gonadal vein is asymmetri dede enlarged in comparison to the left on series 3 image 47. Punctate hypoattenuated region is also seen on image 45 that could represent a small thrombus. Some mild inflammatory changes also seen elsie rounding the right gonadal vein on image 51. LYMPH NODES: No greater than 1cm abdominal or pelvic lymph nodes are appreciated. OSSEOUS STRUCTURES: Indeterminant solitary hyperdense lesion is seen of the L3 vertebral body. OTHER: Moderate atherosclerosis is seen of the abdominal aorta and its branches. Surgical clips are n oted along the right upper quadrant subcutaneous tissues IMPRESSION: 1. Findings mildly suspicious for right gonadal vein thrombosis/thrombophlebitis. This diagnosis shou ld be considered in this patient with right lower quadrant pain and no other CT findings to correspon d to the patient's symptomatology. Although findings are typically seen in a female other inflammatory etiologies such as recent enteritis/colitis can also create thrombosis/thrombophlebitis. 2. Hepatic steatosis. 3. Small hiatal hernia.
[2018-01-30] MEDS: ONDANSETRON 4 MG/2 ML VIAL IVP PRN (11:36)
[2018-01-30] MEDS: metroNIDAZOLE-NS PMX 500 MG in SALINE 1 100ML.BAG IVPB SCH ×3 (11:36→21:41)
[2018-01-30] MEDS: PANTOPRAZOLE 40 MG/10 ML VIAL IVP SCH ×2 (11:39→21:41)
[2018-01-30 12:24] LABS: Glucose,Whole Blood 122 mg/dL (75-99)
[2018-01-30] MEDS: HEPARIN SODIUM,PORCINE 5,000 UNIT/ML 1 ML VIAL SQ SCH ×2 (17:19→23:52)
[2018-01-30 17:31] LABS: Glucose,Whole Blood 120 mg/dL (75-99)
--- NOTE | 2018-01-30 17:41 | PN ---
PROGRESS NOTE DATE OF SERVICE: 01/30/2018 This 62-year-old woman who was admitted with multiple medical problems was complaining of right groin and right lower quadrant abdominal pain and a CT scan of the abdomen done today showed findings suspicious of right gonadal vein thrombophlebitis. Hepatic steatosis also noted. There is no history of fever, rigors or chills. PAST MEDICAL HISTORY: Reviewed. REVIEW OF SYSTEMS: CARDIOVASCULAR: No angina. No palpitations. RESPIRATORY: As mentioned. GI: As mentioned earlier. mentioned earlier. NERVOUS SYSTEM: No numbness or weakness. CURRENT MEDICATIONS: 1. Tylenol 650 q.6h. 2. Ventolin 2.5 q.6h p.r.n. 3. Zyloprim 100 mg daily. 4. Lipitor 20 mg q.h.s. 6. Symbicort 160/4.5 b.i.d. 7. NovoLog scale. 8. Morphine 4 mg q.4h p.r.n. 9. Narcan. 10.Zofran. 11.Protonix. PHYSICAL EXAM: Patient is alert, oriented x3. Pulse is 74, blood pressure 143/77, respiration 18, temp 97.8, pulse ox 98% on room air. HEENT: Conjunctivae normal. Oral mucosa moist. Neck is no jugular venous distention. No carotid bruit. No lymph node enlargement. Cardiovascular system: S1, S2. Respiratory: Breath sounds diminished in the bases. No rhonchi. No crackles. ABDOMEN: Soft. Mild diffuse tenderness in the right lower quadrant present. No mass palpable. No guarding. No rigidity. Legs are no edema. No swelling. Central nervous system: No focal deficits. LABS: WBC 8.0, hemoglobin 11.1. ASSESSMENT: 1. Right lower quadrant abdominal pain for evaluation. 2. 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 3. Hepatic steatosis. 4. Hiatal hernia. 5. Epigastric abdominal pain. 6. Diabetes mellitus type 2. 7. Hyperlipidemia. 8. Hypertension. 9. Chronic obstructive pulmonary disease. RECOMMENDATIONS AND DISCUSSION: Recommend to continue current medications, management and symptomatic treatment. Otherwise, at this time, I recommend continue with DVT prophylaxis. I would also recommend evaluation by [facility] as well as Hematology/Oncology also. Overall prognosis extremely guarded because of multiple complex medical issues. See orders for further details. Further recommendations to follow. MMODL / IJN: [id number] / MTDD
--- NOTE | 2018-01-30 18:59 | US ---
EXAMINATION TYPE: US venous doppler duplex LE BI DATE OF EXAM: 01/30/2018 6:50 PM COMPARISON: NONE CLINICAL HISTORY: dvt. SIDE PERFORMED: Bilateral TECHNIQUE: The lower extremity deep venous system is examined utilizing real time linear array sonog tomas with graded compression, doppler sonography and color-flow sonography. VESSELS IMAGED: External Iliac Vein (EIV) Common Femoral Vein Deep Femoral Vein Greater Saphenous Vein * Femoral Vein Popliteal Vein Small Saphenous Vein * Proximal Calf Veins (* superficial vessels) Right Leg: Negative for DVT Left Leg: Negative for DVT IMPRESSION: No evidence of deep venous thrombosis in both legs.
[2018-01-30 20:51] LABS: Glucose,Whole Blood 112 mg/dL (75-99)
--- NOTE | 2018-01-30 21:17 | P.OBCN ---
History of Present Illness Consult date: 01/30/18 Requesting physician: Santos Davidson Reason for consult: pelvic pain (ovarian vein thrombosis) Chief complaint: right groin/pelvic pain History of present illness: 62 year old female presented to the emergency yesterday complaining of right lower quadrant pain. The pain has been going on for 3 weeks. It worsens and she tries to lift her leg or bring it down from her bed or couch, or really move in any way. On CT there was some evidence of gonadal vein thrombosis. This usually happens either in the period, in the presence of pelvic inflammatory disease, or with malignancy. This patient has not had a baby in over 20 years, the last time she had any vaginal bleeding was at that time, she says she went into menopause right after that . Her last Pap smear was 3 years ago and completely normal. CT showed that the rest of her pelvic organs were normal. Given that she has no vaginal bleeding its unlikely she has endometrial cancer, given the fact that she has had normal Pap smears is unlikely she has cervical cancer, given the fact that she has a normal CT it unlikely she has any ovarian cancer. The patient has not had intercourse in 20 years making it very unlikely she has pelvic inflammatory disease. Review of Systems All systems: negative Constitutional: Denies chills, Denies fever Eyes: denies blurred vision, denies pain Ears, nose, mouth and throat: Denies headache, Denies sore throat Cardiovascular: Denies chest pain, Denies shortness of breath Respiratory: Denies cough Gastrointestinal: Denies abdominal pain, Denies diarrhea, Denies nausea, Denies vomiting Genitourinary: Denies dysuria, Denies hematuria Musculoskeletal: Denies myalgias Integumentary: Denies pruritus, Denies rash Neurological: Denies numbness, Denies weakness Psychiatric: Denies anxiety, Denies depression Endocrine: Denies fatigue, Denies weight change Past Medical History Past Medical History: Asthma, Diabetes Mellitus, GERD/Reflux, Hyperlipidemia, Hypertension History of Any Multi-Drug Resistant Organisms: None Reported Past Surgical History: Cholecystectomy, Orthopedic Surgery Additional Past Surgical History / Comment(s): KNEE CAPS REPLACED BRADEN, D&C, Past Anesthesia/Blood Transfusion Reactions: Motion Sickness, Postoperative Nausea & Vomiting (PONV) Smoking Status: Former smoker Past Alcohol Use History: None Reported Past Drug Use History: None Reported - Past Family History Mother Family Medical History: Cancer, CVA/TIA, Diabetes Mellitus Additional Family Medical History / Comment(s): bowel ca Medications and Allergies Home Medications Medication Instructions Recorded Confirmed Type metFORMIN HCL 1,000 mg PO BID 09/27/13 01/29/18 History Acetaminophen Tab [Tylenol Tab] 500 mg PO Q6HR PRN 01/29/18 01/29/18 History Albuterol Inhaler [Ventolin Hfa 2 puff INHALATION RT-Q6H PRN 01/29/18 01/29/18 History Inhaler] Albuterol Nebulized [Ventolin 2.5 mg INHALATION RT-TID PRN 01/29/18 01/29/18 History Nebulized] Allopurinol [Zyloprim] 100 mg PO DAILY 01/29/18 01/29/18 History Atorvastatin [Lipitor] 20 mg PO HS 01/29/18 01/29/18 History Budesonide/Formoterol Fumarate 2 puff INHALATION RT-BID 01/29/18 01/29/18 History [Symbicort 80-4.5 Mcg Inhaler] Lisinopril [Zestril] 20 mg PO DAILY 01/29/18 01/29/18 History [place]-3 Acid Ethyl Esters [Lovaza] 4 gm PO BID 01/29/18 01/29/18 History Omeprazole 20 mg PO HS 01/29/18 01/29/18 History Ranitidine HCl [Zantac] 150 mg PO BID 01/29/18 01/29/18 History Allergies Allergy/AdvReac Type Severity Reaction Status Date / Time codeine phosphate Allergy Unknown Unknown Verified 01/29/18 07:18 [From Tylenol-Codeine #3] Exam Osteopathic Statement: *. No significant issues noted on an osteopathic structural exam other than those noted in the History and Physical/Consult. Vital Signs Temp Pulse Pulse Resp BP BP Pulse Ox 01/30/18 15:46 97.9 F 75 18 143/76 92 L 01/30/18 07:40 97.4 F L 72 16 128/68 93 L 01/30/18 03:52 18 01/29/18 23:50 97.7 F 75 18 100/49 92 L 01/29/18 23:18 16 Intake and Output 10/05/18 10/05/18 10/05/18 06:59 14:59 22:59 Intake Total 222 200 Balance 222 200 Intake: Oral 222 200 Other: Voiding Method Toilet Toilet Toilet # Bowel Movements 1 Heart: Regular rate and rhythm Lungs: Clear to auscultation bilaterally Abdomen: Soft, nontender Extremities: Negative Homans sign Results Result Diagrams: 01/30/18 06:43 01/30/18 06:43 Abnormal Lab Results - Last 24 Hours (Table) 01/29/18 01/30/18 01/30/18 Range/Units 04:35 06:42 06:43 Hgb (11.4-16.0) gm/dL D-Dimer (<0.60) mg/L FEU Chloride 108 H (98-107) mmol/L Glucose 112 H (74-99) mg/dL POC Glucose (mg/dL) 121 H (75-99) mg/dL Hemoglobin A1c 7.2 H (4.0-6.0) % Total Protein 6.2 L (6.3-8.2) g/dL Albumin 3.1 L (3.5-5.0) g/dL 01/30/18 01/30/18 01/30/18 Range/Units 06:43 12:21 16:45 Hgb 11.1 L (11.4-16.0) gm/dL D-Dimer 6.77 H (<0.60) mg/L FEU Chloride (98-107) mmol/L Glucose (74-99) mg/dL POC Glucose (mg/dL) 122 H (75-99) mg/dL Hemoglobin A1c (4.0-6.0) % Total Protein (6.3-8.2) g/dL Albumin (3.5-5.0) g/dL 01/30/18 01/30/18 Range/Units 17:22 20:50 Hgb (11.4-16.0) gm/dL D-Dimer (<0.60) mg/L FEU Chloride (98-107) mmol/L Glucose (74-99) mg/dL POC Glucose (mg/dL) 120 H 112 H (75-99) mg/dL Hemoglobin A1c (4.0-6.0) % Total Protein (6.3-8.2) g/dL Albumin (3.5-5.0) g/dL Assessment and Plan (1) Abdominal pain Narrative/Plan: Suspect ovarian vein thrombosis; Dr. Woodruff, the speech teacher is continuing the workup and and I'm sure will determine the appropriate treatment. Current Visit: Yes Status: Acute Code(s): R10.9 - UNSPECIFIED ABDOMINAL PAIN SNOMED Code(s): 07617021 Plan: 1. Gynecologically this patient has been cleared of causes to her possible ovarian vein thrombosis 2. It is possible that there is some underlying malignancy causing a hypercoagulable state which led to a thrombosis 3. If A thrombosis is diagnosed, anticoagulation would be in order. Since Dr. Woodruff, hematology/oncology, is on the case I will leave it to him.
[2018-01-30] MEDS: FAMOTIDINE 20 MG TAB PO SCH (21:20)
[2018-01-30] MEDS: ATORVASTATIN 20 MG TAB PO SCH (21:21)
[2018-01-30] MEDS: MELATONIN 5 MG TABLET PO SCH (21:21)
[2018-01-30] MEDS: OMEGA ACID ETHYL ESTERS PO SCH (21:41)
--- NOTE | 2018-01-30 22:55 | P.CONS ---
History of Present Illness - Reason for Consult Consult date: 01/30/18 Possible gonadal vein thrombosis - History of Present Illness The patient is a 62-year-old lady, with generally well controlled medical problems. The patient had come into the emergency room on 01/28/18 a.m. , complaining of abdominal pain, associated with nausea, vomiting and diarrhea. The patient states that she had developed upper airway congestion, and cough about 3 weeks ago. This was associated with sinus drainage and postnasal drip. She also noticed a right lower abdominal pain at that time, which was intermittent. She attributed this to the intensity of her coughing. She stated that the pain appeared to radiate down into her leg and was up to 6-8/10 in severity at maximum. The patient was started on antibiotics for upper respiratory symptoms, and subsequently developed morning pain in the upper abdomen, nausea, vomiting and diarrhea. In the 24 hours prior to admission, she was having difficulty keeping anything down, and had up to 9-10 loose bowel movements. She therefore came into the emergency room, and had an initial computed tomography scan of the abdomen and pelvis. This raises the possibility some enteritis. The patient was seen by Gen. surgery and started on IV fluids, and antibiotics, along with PPI. Her upper abdominal pain, as well as nausea and vomiting and diarrhea improved significantly. She however continued to complain of right lower quadrant abdominal pain. The surgical consult mentioned possible ascending colitis. CT of the abdomen and pelvis was repeated with contrast, today. The report mentioned mild suspicion for right gonadal vein thrombosis. The case was discussed in detail with the radiologist. She confirmed that the degree of suspicion was mild. She also stated that there was no obvious enteritis or colitis noted on this study. Consult was therefore placed a further evaluation and recommendations. The patient denied any prior history of malignancy, or thrombosis. She is up-to- date with her age-appropriate cancer workup, and had a colonoscopy about 3 years ago. Review of Systems Constitutional: Reports poor appetite Eyes: denies blurred vision, denies pain Ears: deny: decreased hearing, ear discharge, earache, tinnitus Ears, nose, mouth and throat: Reports nasal congestion, Reports post-nasal drip , Denies headache, Denies sore throat Cardiovascular: Denies chest pain, Denies shortness of breath Respiratory: Reports congestion, Reports cough with sputum Gastrointestinal: Reports abdominal pain, Reports diarrhea, Reports nausea, Reports vomiting Genitourinary: Denies dysuria, Denies hematuria Menstruation: Reports postmenopausal Musculoskeletal: Denies myalgias Integumentary: Denies pruritus, Denies rash Neurological: Denies numbness, Denies weakness Psychiatric: Denies anxiety, Denies depression Endocrine: Reports fatigue Hematologic/Lymphatic: Reports as per HPI Past Medical History Past Medical History: Asthma, Diabetes Mellitus, GERD/Reflux, Hyperlipidemia, Hypertension Additional Past Medical History / Comment(s): PROBLEMS WITH "EQUALIBRIUM" History of Any Multi-Drug Resistant Organisms: None Reported Past Surgical History: Cholecystectomy, Orthopedic Surgery Additional Past Surgical History / Comment(s): KNEE CAPS REPLACED BRADEN, D&C, Past Anesthesia/Blood Transfusion Reactions: Motion Sickness, Postoperative Nausea & Vomiting (PONV) Smoking Status: Former smoker Past Alcohol Use History: None Reported Past Drug Use History: None Reported - Past Family History Mother Family Medical History: Cancer, CVA/TIA, Diabetes Mellitus Additional Family Medical History / Comment(s): bowel ca Medications and Allergies Home Medications Medication Instructions Recorded Confirmed Type metFORMIN HCL 1,000 mg PO BID 09/27/13 01/29/18 History Acetaminophen Tab [Tylenol Tab] 500 mg PO Q6HR PRN 01/29/18 01/29/18 History Albuterol Inhaler [Ventolin Hfa 2 puff INHALATION RT-Q6H PRN 01/29/18 01/29/18 History Inhaler] Albuterol Nebulized [Ventolin 2.5 mg INHALATION RT-TID PRN 01/29/18 01/29/18 History Nebulized] Allopurinol [Zyloprim] 100 mg PO DAILY 01/29/18 01/29/18 History Atorvastatin [Lipitor] 20 mg PO HS 01/29/18 01/29/18 History Budesonide/Formoterol Fumarate 2 puff INHALATION RT-BID 01/29/18 01/29/18 History [Symbicort 80-4.5 Mcg Inhaler] Lisinopril [Zestril] 20 mg PO DAILY 01/29/18 01/29/18 History Purdy-3 Acid Ethyl Esters [Lovaza] 4 gm PO BID 01/29/18 01/29/18 History Omeprazole 20 mg PO HS 01/29/18 01/29/18 History Ranitidine HCl [Zantac] 150 mg PO BID 01/29/18 01/29/18 History Allergies Allergy/AdvReac Type Severity Reaction Status Date / Time codeine phosphate Allergy Unknown Unknown Verified 01/29/18 07:18 [From Tylenol-Codeine #3] Physical Exam Vitals: Vital Signs Temp Pulse Pulse Pulse Resp BP BP 01/30/18 15:46 97.9 F 75 18 143/76 01/30/18 07:40 97.4 F L 72 16 128/68 01/30/18 03:52 18 01/29/18 23:50 97.7 F 75 18 100/49 01/29/18 23:18 16 01/29/18 20:32 80 01/29/18 20:25 80 01/29/18 20:00 16 Pulse Ox 01/30/18 15:46 92 L 01/30/18 07:40 93 L 01/30/18 03:52 01/29/18 23:50 92 L 01/29/18 23:18 01/29/18 20:32 01/29/18 20:25 01/29/18 20:00 Intake and Output 01/30/18 01/30/18 01/30/18 06:59 14:59 22:59 Intake Total 222 Balance 222 Intake: Oral 222 Other: Voiding Method Toilet Toilet Toilet Results CBC & Chem 7: 01/30/18 06:43 01/30/18 06:43 Labs: Abnormal Lab Results - Last 24 Hours (Table) 01/29/18 01/29/18 01/29/18 Range/Units 04:35 17:17 20:26 Hgb (11.4-16.0) gm/dL D-Dimer (<0.60) mg/L FEU Chloride (98-107) mmol/L Glucose (74-99) mg/dL POC Glucose (mg/dL) 100 H 167 H (75-99) mg/dL Hemoglobin A1c 7.2 H (4.0-6.0) % Total Protein (6.3-8.2) g/dL Albumin (3.5-5.0) g/dL 01/30/18 01/30/18 01/30/18 Range/Units 06:42 06:43 06:43 Hgb 11.1 L (11.4-16.0) gm/dL D-Dimer (<0.60) mg/L FEU Chloride 108 H (98-107) mmol/L Glucose 112 H (74-99) mg/dL POC Glucose (mg/dL) 121 H (75-99) mg/dL Hemoglobin A1c (4.0-6.0) % Total Protein 6.2 L (6.3-8.2) g/dL Albumin 3.1 L (3.5-5.0) g/dL 01/30/18 01/30/18 01/30/18 Range/Units 12:21 16:45 17:22 Hgb (11.4-16.0) gm/dL D-Dimer 6.77 H (<0.60) mg/L FEU Chloride (98-107) mmol/L Glucose (74-99) mg/dL POC Glucose (mg/dL) 122 H 120 H (75-99) mg/dL Hemoglobin A1c (4.0-6.0) % Total Protein (6.3-8.2) g/dL Albumin (3.5-5.0) g/dL Comments: Hip Xray report reviewed CT scan - abdomen: report reviewed CT scan - pelvis: report reviewed US - abdomen: report reviewed Venous US: report reviewed Assessment and Plan (1) Deep vein thrombosis Narrative/Plan: The Ct from today indicated the possibility of a rt gonadal vein thrombosis. Case was discussed in detail with Radiology. They confirmed that the findings were only mildly suspicious. Therefore, at this time, I would not recommend anticoagulation, unless the diagnosis is confirmed ( there is NO definite evidence of benefit of anticoagulation for gonadal thrombosis, except possibly in selected situations). Per my discussion with Radiology, a MRV was recommended to confirm. US of the LE had been ordered. If this was positive, the MRV would not have been needed, as the pt would need anticoagulation anyway. However, as this was negative, the MRV will be ordered If gonadal vein thrombosis is confirmed, I would likely recommend anticoagulation in this pt (for 3 mths) , as this could be the source of her RLQ symptoms. Current Visit: Yes Status: Acute Code(s): I82.409 - ACUTE EMBOLISM AND THOMBOS UNSP DEEP VN UNSP LOWER EXTREMITY SNOMED Code(s): 879019187 (2) Abdominal pain Narrative/Plan: The surgical impression is that this is due to enteritis/colitis. The pt is improved with IV fluids and antibiotics, but is still c/o rt groin pain. The case was d/w Radiology, who confirmed that the most recent Ct does not appear to show any enteritis or colitis. Thus the possibility of gonadal vein thrombosis as a cause,has to be ruled out. Continue current care in the meantime. US indicates a possible hernia. Defer to surgery as to if this could be the etiology, if w/u for thrombosis is negative Current Visit: Yes Status: Acute Code(s): R10.9 - UNSPECIFIED ABDOMINAL PAIN SNOMED Code(s): 53651457
[2018-01-31] MEDS: metroNIDAZOLE-NS PMX 500 MG in SALINE 1 100ML.BAG IVPB SCH ×4 (02:49→21:34)
[2018-01-31] MEDS: SODIUM CHLORIDE 0.9% 1,000 ML IV SCH ×2 (05:47→20:03)
[2018-01-31] MEDS: ACETAMINOPHEN TAB 325 MG TAB PO PRN ×2 (05:50→19:59)
[2018-01-31 07:05] LABS: Glucose,Whole Blood 141 mg/dL (75-99)
[2018-01-31 07:18] LABS: Basophils % (A) 1 %; Eosinophils # (A) 0.5 k/uL (0-0.7); Eosinophils % (A) 10 %; HCT 28.4 % (34.0-46.0); Lymphocytes # (A) 2.2 k/uL (1.0-4.8); Lymphocytes % (A) 40 %; MCH 31.1 pg (25.0-35.0); MCHC 35.2 g/dL (31.0-37.0); MCV 88.4 fL (80.0-100.0); Mean Platelet Volume 8.2; Monocytes # (A) 0.4 k/uL (0-1.0); Monocytes % (A) 8 %; Neutrophils # (A) 2.2 k/uL (1.3-7.7); Neutrophils % (A) 39 %; Platelet Count 165 k/uL (150-450); RBC 3.22 m/uL (3.80-5.40); RDW 13.8 % (11.5-15.5); WBC 5.6 k/uL (3.8-10.6)
[2018-01-31] MEDS: HEPARIN SODIUM,PORCINE 5,000 UNIT/ML 1 ML VIAL SQ SCH ×2 (07:34→15:57)
[2018-01-31 07:46] LABS: Calcium 8.7 mg/dL (8.4-10.2); Potassium 4.5 mmol/L (3.5-5.1)
[2018-01-31] MEDS: INSULIN ASPART 100 UNIT/ML 1 ML 10 ML VIAL SQ SCH ×4 (08:39→21:41)
[2018-01-31] MEDS: FAMOTIDINE 20 MG TAB PO SCH ×2 (08:47→21:33)
[2018-01-31] MEDS: ALLOPURINOL 100 MG TAB PO SCH (08:47)
[2018-01-31] MEDS: AZITHROMYCIN 500 MG TAB PO SCH (08:47)
[2018-01-31] MEDS: SYMBICORT 80-4.5 MCG INHALER INHALATION SCH ×2 (09:15→19:52)
[2018-01-31] MEDS: OMEGA ACID ETHYL ESTERS PO SCH ×2 (10:57→21:43)
[2018-01-31] MEDS: PANTOPRAZOLE 40 MG/10 ML VIAL IVP SCH ×2 (11:33→21:33)
[2018-01-31 11:45] LABS: Glucose,Whole Blood 122 mg/dL (75-99)
[2018-01-31] MEDS ORDERED: FUROSEMIDE 10 MG/ML 2 ML VIAL IV ONE (12:15)
--- NOTE | 2018-01-31 13:31 | CT ---
EXAMINATION TYPE: CT angio chest DATE OF EXAM: 01/31/2018 1:17 PM COMPARISON: Previous study dated 01/09/2018 HISTORY: Shortness of breath CT DLP: 345.4 mGycm Automated exposure control for dose reduction was used. CONTRAST: CTA scan of the thorax is performed with IV Contrast, patient injected with 100, wasted 29 ml mL of I sovue 370, pulmonary embolism protocol. . FINDINGS: There is some chronic scarring in the left lingula. Lungs otherwise clear. There is no sign ificant axillary, internal mammary, mediastinal or hilar adenopathy. There is no evidence of pulmonary embolus. Through the aorta is upper limits of normal. The remainder the aorta is normal in caliber. There is no pleural or pericardial fluid. The heart is mildly enlarged. There is a small sliding hiatal hernia. The gallbladder is been removed. The remainder the upper abdo men is unremarkable. There is hypertrophic spondylosis within the spine. IMPRESSION: 1. THIS EXAMINATION IS NEGATIVE FOR PULMONARY EMBOLUS. 2. REMAINDER THE AORTA IS UPPER LIMITS OF NORMAL IN SIZE. 3. MILD CARDIOMEGALY. 4. DEGENERATIVE CHANGES WITHIN THE SPINE.
[2018-01-31 16:50] LABS: Glucose,Whole Blood 145 mg/dL (75-99)
--- NOTE | 2018-01-31 21:20 | PN ---
PROGRESS NOTE DATE OF SERVICE: 01/31/2018. INTERVAL HISTORY: This 62-year-old woman who was admitted with multiple medical problems and right lower quadrant abdominal pain. The patient had suspicious abdominal venous thrombosis which is not confirmed at this time and the patient also had elevated D-dimer. Chest CTA was ordered which showed mild cardiomegaly and no evidence of pulmonary embolism. Patient being closely monitored. Patient is able to tolerate a diet at this time. No chest pain. No palpitations. No fever. PHYSICAL EXAM: Alert and oriented x3. Pulse is 75. Blood pressure 96/56, respiration 16, temperature 97.6, pulse ox 94% on room air. HEENT: Conjunctivae normal. Oral mucosa moist. Neck is no jugular venous distention. No carotid bruit. No lymph node enlargement. Cardiovascular: S1, S2. Respiration: Breath sounds diminished in the bases. ABDOMEN: Soft, nontender. No mass palpable. Legs: No edema. No swelling. Nervous system: No focal deficits. LABS: At this time shows WBC 5.6, hemoglobin is 10. Accu-Cheks noted. ASSESSMENT: 1. Right lower quadrant abdominal pain for evaluation, possible resolving colitis. 2. 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 3. History of hepatic steatosis. 4. Hiatal hernia. 5. Epigastric abdominal pain. 6. Diabetes mellitus type 2. 7. Hyperlipidemia. 8. Hypertension. 9. History of chronic obstructive pulmonary disease. RECOMMENDATIONS AND DISCUSSION: To continue current medications, management and symptomatic treatment. Otherwise at this time, Dr. Woodruff has recommended MRV as an outpatient. Spiral CT scan negative for pulmonary embolism. Otherwise, we will continue to monitor, symptomatic treatment and advance diet per surgery. Further recommendations to follow. MMODL / IJN: [id number] /
[2018-01-31] MEDS: MELATONIN 5 MG TABLET PO SCH (21:33)
[2018-01-31] MEDS: ATORVASTATIN 20 MG TAB PO SCH (21:34)
[2018-01-31 21:56] LABS: Glucose,Whole Blood 136 mg/dL (75-99)
--- NOTE | 2018-01-31 22:50 | PN ---
PROGRESS NOTE DATE OF SERVICE: January 31, 2018. Heydi is seen today as a followup. She feels tired overall. She had an episode of diarrhea. No fever or chills. No melena. No hematochezia. PHYSICAL EXAMINATION: She is alert, oriented x3. She does not appear to be in distress. Her vital signs are temperature 98, afebrile, pulse 81 and regular, respiration 14, blood pressure 147/65. HEENT: Normocephalic, atraumatic. NECK: Supple. LUNGS: Clear to auscultation. Heart is regular rate and rhythm. ABDOMEN: Soft and there is no abdominal tenderness and in fact, there is tenderness in the left groin upon flexing her hip and abducting her hip. Left groin pain. There is no abdominal tenderness. She has right groin tenderness which is aggravated by flexing or abducting her leg. IMPRESSION: Right groin pain. I doubt this is related to the right ovarian vein thrombosis. Based on the clinical findings, the pain is aggravated sometime by walking in her right groin and upon exam, this pain was triggered by flexing her hip and by abducting her hip. This raises possibility that her pain is related to hip tissue or ligament issue in her groin and it is not related to underlying ovarian vein thrombosis. This is felt to be clinically unlikely and also radiographically this is felt to be on likely possibility. Based on that, no further workup required for to rule out ovarian vein thrombosis. Continue current management and consider evaluation of her right hip. MMODL / IJN: [id number] /
[2018-02-01] MEDS: HEPARIN SODIUM,PORCINE 5,000 UNIT/ML 1 ML VIAL SQ SCH ×4 (00:16→23:30)
[2018-02-01] MEDS: metroNIDAZOLE-NS PMX 500 MG in SALINE 1 100ML.BAG IVPB SCH ×4 (02:45→20:11)
[2018-02-01] MEDS: ACETAMINOPHEN TAB 325 MG TAB PO PRN ×3 (05:43→20:15)
[2018-02-01 07:04] LABS: Glucose,Whole Blood 166 mg/dL (75-99)
[2018-02-01 07:19] LABS: HCT 31.9 % (34.0-46.0); HGB 11.3 gm/dL (11.4-16.0); MCH 31.2 pg (25.0-35.0); MCHC 35.3 g/dL (31.0-37.0); MCV 88.3 fL (80.0-100.0); Mean Platelet Volume 8.9; Platelet Count 200 k/uL (150-450); Poikilocytosis Slight; RBC 3.62 m/uL (3.80-5.40); RDW 14.6 % (11.5-15.5)
[2018-02-01] MEDS: SYMBICORT 80-4.5 MCG INHALER INHALATION SCH ×2 (07:48→19:39)
[2018-02-01 07:53] LABS: Band Neutrophils % 4 %; Eosinophils # (M) 0.42 k/uL (0-0.7); Lymphocytes # (M) 2.24 k/uL (1.0-4.8); Monocytes # (M) 0.56 k/uL (0-1.0); Neutrophils % (M) 50 %; Nucleated Red Blood Cells 0 /100 WBC (0-0); Polychromasia Present; Total Cells Counted 100
[2018-02-01] MEDS: FAMOTIDINE 20 MG TAB PO SCH ×2 (08:51→20:11)
[2018-02-01] MEDS: AZITHROMYCIN 500 MG TAB PO SCH (08:51)
[2018-02-01] MEDS: ALLOPURINOL 100 MG TAB PO SCH (08:51)
[2018-02-01] MEDS: INSULIN ASPART 100 UNIT/ML 1 ML 10 ML VIAL SQ SCH ×4 (08:56→20:24)
[2018-02-01] MEDS: SODIUM CHLORIDE 0.9% 1,000 ML IV SCH ×2 (08:56→23:27)
[2018-02-01] MEDS: PANTOPRAZOLE 40 MG/10 ML VIAL IVP SCH ×2 (08:59→20:11)
[2018-02-01 11:05] LABS: Anion Gap 9 mmol/L; Blood Urea Nitrogen 12 mg/dL (7-17); Calcium 8.8 mg/dL (8.4-10.2); Carbon Dioxide 24 mmol/L (22-30); Chloride 105 mmol/L (98-107); Glucose 145 mg/dL (74-99); Potassium 3.9 mmol/L (3.5-5.1); Sodium 138 mmol/L (137-145)
[2018-02-01 11:34] LABS: Glucose,Whole Blood 161 mg/dL (75-99)
[2018-02-01] MEDS: OMEGA ACID ETHYL ESTERS PO SCH ×2 (12:03→20:25)
--- NOTE | 2018-02-01 14:04 | P.PN ---
Subjective Progress Note Date: 01/31/18 CHIEF COMPLAINT: History of right lower quadrant abdominal pain HISTORY OF PRESENT ILLNESS: The patient is a 62-year-old female presented with chronic right lower quadrant abdominal pain which became more acute within 1 week prior to her admission. She reported having change in bowel habits primarily diarrhea. Surgery was consulted to evaluate for appendicitis which has been negative. Since admission to the hospital, she is placed on antibiotics. Repeat CT scans now demonstrated resolution of colitis. Now she has diagnosis of possible thrombosed right gonadal vein as a cause of her pain. Multiple consultants are now following including [facility] as well as oncology. PHYSICAL EXAM: VITAL SIGNS: Currently stable. GENERAL: Well-developed in no acute distress. HEENT: No sclera icterus. Extraocular movements grossly intact. Moist buccal mucosa. Head is atraumatic, normocephalic. Hears conversational speech. No nasal drainage. NECK: Supple without lymphadenopathy. CHEST: Non-labored respirations and equal bilateral excursions. CARDIOVASCULAR: Regular rate with regular rhythm. ABDOMEN: Protuberant. No peritonitis. Tenderness along right lower quadrant, improved since admission. MUSCULOSKELETAL: No clubbing, cyanosis or edema. NEUROLOGIC: No focal or lateralizing signs. Cranial nerves II through XII grossly intact. PSYCH: Alert and oriented to person, place and time. SKIN: Well perfused. Good skin turgor. LABS: Reviewed ASSESSMENT: 1. Chronic right lower quadrant abdominal pain PLAN: 1. No acute surgical intervention needed at this time as no appendicitis is identified. 2. Management per consultants for other etiologies of her right lower quadrant abdominal pain. Objective - Vital Signs Vital signs: Vital Signs Temp 97.6 F 01/31/18 00:47 Pulse 75 01/31/18 00:47 Resp 16 01/31/18 00:47 BP 96/56 01/31/18 00:47 Pulse Ox 94 L 01/31/18 00:47 Intake & Output 01/30/18 01/31/18 01/31/18 18:59 06:59 18:59 Intake Total 422 320 Balance 422 320 Intake: Oral 422 320 Other: Voiding Method Toilet # Bowel Movements 1 - Labs CBC & Chem 7: 02/01/18 06:08 02/01/18 10:39 Labs: Abnormal Lab Results - Last 24 Hours (Table) 01/30/18 01/30/18 01/30/18 Range/Units 12:21 16:45 17:22 RBC (3.80-5.40) m/uL Hgb (11.4-16.0) gm/dL Hct (34.0-46.0) % D-Dimer 6.77 H (<0.60) mg/L FEU Glucose (74-99) mg/dL POC Glucose (mg/dL) 122 H 120 H (75-99) mg/dL 01/30/18 01/31/18 01/31/18 Range/Units 20:50 06:20 06:20 RBC 3.22 L (3.80-5.40) m/uL Hgb 10.0 L (11.4-16.0) gm/dL Hct 28.4 L (34.0-46.0) % D-Dimer (<0.60) mg/L FEU Glucose 121 H (74-99) mg/dL POC Glucose (mg/dL) 112 H (75-99) mg/dL 01/31/18 Range/Units 07:03 RBC (3.80-5.40) m/uL Hgb (11.4-16.0) gm/dL Hct (34.0-46.0) % D-Dimer (<0.60) mg/L FEU Glucose (74-99) mg/dL POC Glucose (mg/dL) 141 H (75-99) mg/dL Assessment and Plan (1) Abdominal pain Current Visit: Yes Status: Acute Code(s): R10.9 - UNSPECIFIED ABDOMINAL PAIN SNOMED Code(s): 81794518
--- NOTE | 2018-02-01 14:07 | P.PN ---
Subjective Progress Note Date: 02/01/18 CHIEF COMPLAINT: History of right lower quadrant abdominal pain HISTORY OF PRESENT ILLNESS: The patient is a 62-year-old female presented with chronic right lower quadrant abdominal pain. She reports resolution of her diarrhea. She's had multiple studies including CT of the chest, multiple repeat CTs of the abdomen and pelvis, ultrasound extremities which came back positive for criminal vein thrombosis. She reports her pain is only sestamibi lifting as she reports lifting something very heavy several weeks ago. She is now tolerating diet. Her main concern is to return home and manage her diabetes. PHYSICAL EXAM: VITAL SIGNS: Currently stable. GENERAL: Well-developed in no acute distress. HEENT: No sclera icterus. Extraocular movements grossly intact. Moist buccal mucosa. Head is atraumatic, normocephalic. Hears conversational speech. No nasal drainage. NECK: Supple without lymphadenopathy. CHEST: Non-labored respirations and equal bilateral excursions. CARDIOVASCULAR: Regular rate with regular rhythm. ABDOMEN: Protuberant. No peritonitis. Minimal tenderness right lower quadrant MUSCULOSKELETAL: No clubbing, cyanosis or edema. NEUROLOGIC: No focal or lateralizing signs. Cranial nerves II through XII grossly intact. PSYCH: Alert and oriented to person, place and time. SKIN: Well perfused. Good skin turgor. LABS: Reviewed ASSESSMENT: 1. Chronic right lower quadrant abdominal pain PLAN: 1. From a surgical standpoint, patient may be discharged with outpatient follow -up 2. No surgical intervention needed at this time Objective - Vital Signs Vital signs: Vital Signs Temp 97.8 F 02/01/18 01:39 Pulse 75 02/01/18 01:39 Resp 16 02/01/18 01:39 BP 137/50 02/01/18 01:39 Pulse Ox 97 02/01/18 01:39 Intake & Output 01/31/18 02/01/18 02/01/18 18:59 06:59 18:59 Intake Total 662 360 Balance 662 360 Intake: Oral 662 360 - Labs CBC & Chem 7: 02/01/18 06:08 02/01/18 10:39 Labs: Abnormal Lab Results - Last 24 Hours (Table) 01/31/18 01/31/18 01/31/18 Range/Units 16:48 17:59 17:59 RBC (3.80-5.40) m/uL Hgb (11.4-16.0) gm/dL Hct (34.0-46.0) % ESR 41 H (0-20) mm/hr Glucose (74-99) mg/dL POC Glucose (mg/dL) 145 H (75-99) mg/dL C-Reactive Protein 10.6 H (<10.0) mg/L 01/31/18 02/01/18 02/01/18 Range/Units 21:40 06:08 06:56 RBC 3.62 L (3.80-5.40) m/uL Hgb 11.3 L (11.4-16.0) gm/dL Hct 31.9 L (34.0-46.0) % ESR (0-20) mm/hr Glucose (74-99) mg/dL POC Glucose (mg/dL) 136 H 166 H (75-99) mg/dL C-Reactive Protein (<10.0) mg/L 02/01/18 02/01/18 Range/Units 10:39 11:32 RBC (3.80-5.40) m/uL Hgb (11.4-16.0) gm/dL Hct (34.0-46.0) % ESR (0-20) mm/hr Glucose 145 H (74-99) mg/dL POC Glucose (mg/dL) 161 H (75-99) mg/dL C-Reactive Protein (<10.0) mg/L - Imaging and Cardiology CT scan - abdomen: report reviewed (No findings of metastases or neoplasms of the abdomen), image reviewed CT scan - chest: report reviewed, image reviewed CT scan - pelvis: report reviewed, image reviewed Assessment and Plan (1) Abdominal pain Current Visit: Yes Status: Acute Code(s): R10.9 - UNSPECIFIED ABDOMINAL PAIN SNOMED Code(s): 42094005 (2) Morbid obesity with BMI of 40.0-44.9, adult Current Visit: Yes Status: Acute Code(s): E66.01 - MORBID (SEVERE) OBESITY DUE TO EXCESS CALORIES; Z68.41 - BODY MASS INDEX (BMI) 40.0-44.9, ADULT SNOMED Code(s): 478076534 (3) Right lower quadrant pain Current Visit: Yes Status: Acute Code(s): R10.31 - RIGHT LOWER QUADRANT PAIN SNOMED Code(s): 500035455 (4) Diabetes type 2, controlled Current Visit: Yes Status: Acute Code(s): E11.9 - TYPE 2 DIABETES MELLITUS WITHOUT COMPLICATIONS SNOMED Code(s): 36980283
[2018-02-01 16:46] LABS: Glucose,Whole Blood 145 mg/dL (75-99)
--- NOTE | 2018-02-01 17:43 | PN ---
PROGRESS NOTE DATE OF SERVICE: 02/01/2018 This 62-year-old woman is admitted with right lower quadrant abdominal pain was suspected to have a ovarian vein thrombophlebitis initially. Subsequently the patient high D-dimer, right carotid venous thrombosis suspected. The patient also had hepatic steatosis also. CT angio of the chest was negative for pulmonary embolism. The patient has also had significant arthropathy also. Patient closely monitored at this time. PHYSICAL EXAM: Patient is alert, oriented x3. The pulse is 80, blood pressure 150/84, respirations 18, temperature 97.9, pulse ox 94% on room air. HEENT: Conjunctivae normal. Oral mucosa moist. Neck is no jugular venous distention. No carotid bruit. No lymph node enlargement. CARDIOVASCULAR: S1, S2. RESPIRATORY: Breath sounds diminished in the bases. No rhonchi, no crackles. ABDOMEN: Soft, mild diffuse discomfort in the right lower quadrant present. NERVOUS SYSTEM: No focal deficits. LABS: WBC 7, hemoglobin 11.3. ASSESSMENT: 1. Right lower quadrant abdominal pain, possible resolving colitis. 2. Suspected right groin thrombosis and thrombophlebitis. 3. History of hepatic steatosis. 4. Possible severe degenerative joint disease. 5. Hiatal hernia. 6. Elevated D-dimer without any evidence of pulmonary embolus. 7. Epigastric abdominal pain. 8. Diabetes mellitus type 2. 9. Hypertension. 10.Hyperlipidemia. 11.History of chronic obstructive pulmonary disease. RECOMMENDATIONS AND DISCUSSION: I recommend to continue current management and symptomatic treatment. Otherwise at this time closely monitor with multiple consultants. Orthopedic evaluation. Guarded prognosis. Further recommendations to follow. MMODL / IJN: [id number] /
[2018-02-01] MEDS: ATORVASTATIN 20 MG TAB PO SCH (20:11)
[2018-02-01] MEDS: MELATONIN 5 MG TABLET PO SCH (20:11)
[2018-02-01 20:33] LABS: Glucose,Whole Blood 165 mg/dL (75-99)
[2018-02-01 23:57] VITALS: RESP 16
[2018-02-02] MEDS: MELATONIN 5 MG TABLET PO SCH (01:55)
[2018-02-02] MEDS: metroNIDAZOLE-NS PMX 500 MG in SALINE 1 100ML.BAG IVPB SCH ×2 (02:42→09:20)
[2018-02-02 07:29] LABS: Glucose,Whole Blood 125 mg/dL (75-99)
[2018-02-02 07:39] VITALS: BP 144/69; TEMP 97.9
[2018-02-02 08:56] LABS: Basophils % (A) 1 %; Eosinophils # (A) 0.4 k/uL (0-0.7); Eosinophils % (A) 7 %; HGB 11.1 gm/dL (11.4-16.0); Lymphocytes # (A) 1.6 k/uL (1.0-4.8); Lymphocytes % (A) 28 %; MCH 30.2 pg (25.0-35.0); MCHC 34.6 g/dL (31.0-37.0); MCV 87.2 fL (80.0-100.0); Mean Platelet Volume 7.6; Monocytes # (A) 0.5 k/uL (0-1.0); Monocytes % (A) 8 %; Neutrophils # (A) 3.1 k/uL (1.3-7.7); Neutrophils % (A) 53 %; Platelet Count 192 k/uL (150-450); RBC 3.67 m/uL (3.80-5.40); RDW 13.9 % (11.5-15.5); WBC 5.8 k/uL (3.8-10.6)
[2018-02-02] MEDS: SYMBICORT 80-4.5 MCG INHALER INHALATION SCH (09:12)
[2018-02-02] MEDS: ALBUTEROL NEBULIZED 2.5 MG/3 ML INHALATION PRN (09:12)
[2018-02-02 09:19] LABS: Anion Gap 9 mmol/L; Blood Urea Nitrogen 9 mg/dL (7-17); Calcium 8.8 mg/dL (8.4-10.2); Carbon Dioxide 25 mmol/L (22-30); Chloride 106 mmol/L (98-107); Glucose 139 mg/dL (74-99); Sodium 140 mmol/L (137-145)
[2018-02-02] MEDS: HEPARIN SODIUM,PORCINE 5,000 UNIT/ML 1 ML VIAL SQ SCH (09:20)
[2018-02-02] MEDS: ALLOPURINOL 100 MG TAB PO SCH (09:20)
[2018-02-02] MEDS: FAMOTIDINE 20 MG TAB PO SCH (09:21)
[2018-02-02] MEDS: AZITHROMYCIN 500 MG TAB PO SCH (09:21)
[2018-02-02] MEDS: PANTOPRAZOLE 40 MG/10 ML VIAL IVP SCH (09:22)
[2018-02-02] MEDS: ACETAMINOPHEN TAB 325 MG TAB PO PRN (09:22)
[2018-02-02] MEDS: INSULIN ASPART 100 UNIT/ML 1 ML 10 ML VIAL SQ SCH ×2 (09:29→13:03)
[2018-02-02] MEDS: OMEGA ACID ETHYL ESTERS PO SCH (09:29)
[2018-02-02 09:30] VITALS: PULSE 84
--- NOTE | 2018-02-02 11:32 | P.PN ---
Subjective Progress Note Date: 02/02/18 62-year-old female sitting up in bed. Patient states had a bowel movement This morning. Patient states there is an improvement in the right lower quadrant abdominal pain this morning. Patient had computed tomography scan of the chest repeat CT of the abdomen and pelvis and ultrasound which reportedly came back negative. She currently is tolerating a diet. No nausea vomiting patient states is anxious to be discharged Objective - Vital Signs Vital signs: Vital Signs Temp 97.9 F 02/02/18 07:38 Pulse 84 02/02/18 09:29 Resp 16 02/02/18 07:38 BP 144/69 02/02/18 07:38 Pulse Ox 93 L 02/02/18 07:38 Intake & Output 02/01/18 02/02/18 02/02/18 18:59 06:59 18:59 Intake Total 870 Balance 870 Intake: Oral 870 - Exam Physical exam 62-year-old female sitting up on the edge of the bed appears in no acute distress states the right lower quadrant abdominal pain has improved Lungs bilateral prolonged expiratory wheezing noted no cough noted no shortness of breath Heart S1-S2 audible regular Abdomen obese soft nondistended nontender states had a bowel movement this morning tolerating a diet no nausea no vomiting Extremities no edema - Labs CBC & Chem 7: 02/02/18 08:15 02/02/18 08:15 Labs: Abnormal Lab Results - Last 24 Hours (Table) 02/01/18 02/01/18 02/01/18 Range/Units 11:32 16:44 20:21 RBC (3.80-5.40) m/uL Hgb (11.4-16.0) gm/dL Hct (34.0-46.0) % Glucose (74-99) mg/dL POC Glucose (mg/dL) 161 H 145 H 165 H (75-99) mg/dL 02/02/18 02/02/18 02/02/18 Range/Units 07:28 08:15 08:15 RBC 3.67 L (3.80-5.40) m/uL Hgb 11.1 L (11.4-16.0) gm/dL Hct 32.0 L (34.0-46.0) % Glucose 139 H (74-99) mg/dL POC Glucose (mg/dL) 125 H (75-99) mg/dL Assessment and Plan Assessment: Impression Present on admission right lower quadrant abdominal pain with nausea vomiting highly suspicious for right-sided colitis History of a cholecystectomy 20 years prior Morbid obesity BMI 44 excess calories Present on admission leukocytosis suspect reactive Present on admission hyperkalemia History of frequent loose stools just completed a 10 day course antibiotics for bronchitis CAT scan abdomen and pelvis with IV contrast no free air appendix not well visualized scattered thickened small bowel loops may reflect enteritis CAT scan abdomen pelvis with IV contrast done on the third report indicate inflammation of the ascending colon Right inguinal hernia identified Plan No evidence of an acute surgical abdomen Okay to discharge from surgery The above impression and plan of care have been discussed and directed by signing physician. Fariba Dave nurse practitioner acting as scribe for signing physician.
[2018-02-02 12:02] LABS: Glucose,Whole Blood 149 mg/dL (75-99)
[2018-02-02] MEDS: SODIUM CHLORIDE 0.9% 1,000 ML IV SCH (12:05)
--- NOTE | 2018-02-02 21:36 | P.CNOR ---
History of Present Illness - [facility] Consult date: 02/02/18 Requesting physician: Ki Ricardo Consult reason: joint pain History of present illness: Patient is seen at bedside in consultation for right hip pain. She states that she has had right hip and groin pain x 3 weeks. She feels like she may have aggravated while moving homes. She denies fall or trauma to her hip or leg. SHe has pain with weightbearing and ROM. She denies radicular symptoms including numbness, tingling or weakness. She has no other complaints. ROS is negative for loss of bowel or bladder, saddle anesthesia, calf pain, fever, chills, chest pain, shortness of breath or other. Review of Systems All systems: negative Constitutional: Denies chills, Denies fever Eyes: denies blurred vision, denies pain Ears, nose, mouth and throat: Denies headache, Denies sore throat Cardiovascular: Denies chest pain, Denies shortness of breath Respiratory: Denies cough Gastrointestinal: Denies abdominal pain, Denies diarrhea, Denies nausea, Denies vomiting Genitourinary: Denies dysuria, Denies hematuria Musculoskeletal: Denies myalgias Integumentary: Denies pruritus, Denies rash Neurological: Denies numbness, Denies weakness Psychiatric: Denies anxiety, Denies depression Endocrine: Denies fatigue, Denies weight change Past Medical History Past Medical History: Asthma, Diabetes Mellitus, GERD/Reflux, Hyperlipidemia, Hypertension Additional Past Medical History / Comment(s): PROBLEMS WITH "EQUALIBRIUM" History of Any Multi-Drug Resistant Organisms: None Reported Past Surgical History: Cholecystectomy, Orthopedic Surgery Additional Past Surgical History / Comment(s): KNEE CAPS REPLACED BRADEN, D&C, Past Anesthesia/Blood Transfusion Reactions: Motion Sickness, Postoperative Nausea & Vomiting (PONV) Smoking Status: Former smoker Past Alcohol Use History: None Reported Past Drug Use History: None Reported - Past Family History Mother Family Medical History: Cancer, CVA/TIA, Diabetes Mellitus Additional Family Medical History / Comment(s): bowel ca Medications and Allergies Home Medications Medication Instructions Recorded Confirmed Type metFORMIN HCL 1,000 mg PO BID 09/27/13 01/29/18 History Acetaminophen Tab [Tylenol] 500 mg PO Q6HR PRN 01/29/18 01/29/18 History Albuterol Inhaler [Ventolin Hfa 2 puff INHALATION RT-Q6H PRN 01/29/18 01/29/18 History Inhaler] Albuterol Nebulized [Ventolin 2.5 mg INHALATION RT-TID PRN 01/29/18 01/29/18 History Nebulized] Allopurinol [Zyloprim] 100 mg PO DAILY 01/29/18 01/29/18 History Atorvastatin [Lipitor] 20 mg PO HS 01/29/18 01/29/18 History Budesonide/Formoterol Fumarate 2 puff INHALATION RT-BID 01/29/18 01/29/18 History [Symbicort 80-4.5 Mcg Inhaler] [place]-3 Acid Ethyl Esters [Lovaza] 4 gm PO BID 01/29/18 01/29/18 History Omeprazole 20 mg PO HS 01/29/18 01/29/18 History Ranitidine HCl [Zantac] 150 mg PO BID 01/29/18 01/29/18 History metroNIDAZOLE [Flagyl] 500 mg PO TID #15 tab 02/02/18 Rx Allergies Allergy/AdvReac Type Severity Reaction Status Date / Time codeine phosphate Allergy Unknown Unknown Verified 01/29/18 07:18 [From Tylenol-Codeine #3] Physical Examination Inspection of the right lower extremity is benign. No acute wounds, erythema, echymoses or deformity. There is a well healed surgical wound at the left knee from a TKA. The hip is nontender. She has pain with hip abduction to 20 degrees and external rotation to 30 degrees. No pain with internal rotation to 30 and hip flexion to 80. She has negative straight leg raise. Neurovascular status intact L2-S1 with motor and sensation. No pathologic reflexes. Calf is SNT. 2+ DP pulse and less than 2 sec cap refill present. Results Xrays and CT of pelvis /hip neg for fracture. There is DJD/osteoarthritis of the hip present. - Labs Labs: Abnormal Lab Results - Last 24 Hours (Table) 02/01/18 02/01/18 02/02/18 Range/Units 16:44 20:21 07:28 RBC (3.80-5.40) m/uL Hgb (11.4-16.0) gm/dL Hct (34.0-46.0) % Glucose (74-99) mg/dL POC Glucose (mg/dL) 145 H 165 H 125 H (75-99) mg/dL 02/02/18 02/02/18 02/02/18 Range/Units 08:15 08:15 12:00 RBC 3.67 L (3.80-5.40) m/uL Hgb 11.1 L (11.4-16.0) gm/dL Hct 32.0 L (34.0-46.0) % Glucose 139 H (74-99) mg/dL POC Glucose (mg/dL) 149 H (75-99) mg/dL H & H 01/29/18 01/30/18 01/31/18 Range/Units 04:35 06:43 06:20 Hgb 12.6 11.1 L 10.0 L (11.4-16.0) gm/dL Hct 37.8 35.1 28.4 L (34.0-46.0) % 02/01/18 02/02/18 Range/Units 06:08 08:15 Hgb 11.3 L 11.1 L (11.4-16.0) gm/dL Hct 31.9 L 32.0 L (34.0-46.0) % Result Diagrams: 02/02/18 08:15 02/02/18 08:15 - Diagnostic results Hip x-ray: report reviewed, image reviewed Assessment and Plan (1) Hip osteoarthritis Narrative/Plan: There is no evidence of hip fracture or condition requiring immediate invasive intervention. She may be WBAT. Defer pain management/antiinflammatories to primary team. Recommend f/u as an outpatient for further evaluation and management. Status: Acute Priority: Medium Code(s): M16.9 - OSTEOARTHRITIS OF HIP, UNSPECIFIED SNOMED Code(s): 798939004 (2) Right lower quadrant pain Status: Acute Code(s): R10.31 - RIGHT LOWER QUADRANT PAIN SNOMED Code(s): 483979531 Time with Patient: Less than 30
--- NOTE | 2018-02-02 21:53 | DS ---
DISCHARGE SUMMARY DATE OF SERVICE: 02/02/2018 FINAL DIAGNOSES: 1. Right lower quadrant abdominal pain, possibly resolving colitis. 2. Suspected right ovarian thrombosis and thrombophlebitis. 3. History of hepatic steatosis. 4. Possible right hip degenerative joint disease and severe degenerative joint disease. 5. Hiatal hernia. 6. Elevated D-dimer without any evidence of pulmonary embolism. 7. Epigastric and abdominal pain, improved. 8. Diabetes mellitus, type 2. 9. Hypertension. 10.Hyperlipidemia. 11.History of chronic obstructive pulmonary disease. DISCHARGE DISPOSITION: The patient will be discharged in stable condition with guarded prognosis. HISTORY OF PRESENT ILLNESS: This 62-year-old woman with a past medical history of multiple medical problems was admitted with right lower quadrant abdominal pain. Initially right ovarian thrombophlebitis was suspected but thought to be unlikely, as per the hematology/oncology evaluation. Otherwise, patient was also suspected to have severe DJD, especially on the right hip, treated symptomatically. On exam, vital signs are stable. CARDIOVASCULAR SYSTEM: S1, S2 muffled. ABDOMEN: Soft. NERVOUS SYSTEM: No focal deficit. Patient underwent multiple evaluations with an abdomen and pelvis CT, chest CT, as well as venous Doppler. Surgery and Hematology/Oncology saw the patient. The patient improved significantly. The patient will be discharged in stable condition with guarded prognosis. DISCHARGE ADVICE AND MEDICATIONS: 1. Diet is cardiac. 2. Activity limited until followup. 3. Follow up with Dr. Rochelle Parrish in 2-3 days. 4. Follow up with Orthopedic Surgery as recommended. 5. Follow up with Surgery as recommended. 6. Tylenol 500 mg q.6 p.r.n. 7. Ventolin 2 puffs q.6 p.r.n. 8. Zyloprim 100 mg p.o. daily. 9. Lipitor 20 mg at bedtime. 10.Symbicort 2 puffs b.i.d. 11.Metformin 1000 mg p.o. b.i.d. 12.[place]-3 4 mg p.o. b.i.d. 13.Omeprazole 20 mg at bedtime. 14.Zantac 150 mg p.o. b.i.d. 15.Flagyl 500 mg p.o. t.i.d. for 5 days. Once again, the patient will be discharged in stable condition with guarded prognosis. MMODL / IJN: [id number] /
== END 2018-02-02 16:00 | disposition home or self-care (01) | DRG 392 ==
LOC: EC 03:34 → 3OBS 07:27 → 3SUR 01-30 18:30 → OBSVTOIN 02-01 16:53
PROVIDERS: ADMIT Hospitalist; ATTEND Hospitalist
DX: K52.9 Noninfective gastroenteritis and colitis, unspecified (principal); I82.890 Acute embolism and thrombosis of other specified veins; J44.1 Chronic obstructive pulmonary disease with (acute) exacerbation; Z68.41 Body mass index [BMI] 40.0-44.9, adult; E11.9 Type 2 diabetes mellitus without complications; E66.01 Morbid (severe) obesity due to excess calories; E78.5 Hyperlipidemia, unspecified; E87.5 Hyperkalemia; G89.29 Other chronic pain; I11.9 Hypertensive heart disease without heart failure; Z71.6 Tobacco abuse counseling; K21.9 Gastro-esophageal reflux disease without esophagitis; K29.70 Gastritis, unspecified, without bleeding; K40.90 Unilateral inguinal hernia, without obstruction or gangrene, not specified as recurrent; K44.9 Diaphragmatic hernia without obstruction or gangrene; K64.9 Unspecified hemorrhoids; K76.0 Fatty (change of) liver, not elsewhere classified; M12.9 Arthropathy, unspecified; M16.11 Unilateral primary osteoarthritis, right hip; R79.1 Abnormal coagulation profile; Z79.82 Long term (current) use of aspirin; Z79.84 Long term (current) use of oral hypoglycemic drugs; Z83.3 Family history of diabetes mellitus; Z87.891 Personal history of nicotine dependence; Z79.899 Other long term (current) drug therapy; Z88.5 Allergy status to narcotic agent; Z90.49 Acquired absence of other specified parts of digestive tract; I80.8 Phlebitis and thrombophlebitis of other sites
CPT/HCPCS: 36415; 71275; 73502; 74177; 80048; 80053; 81003; 82150; 83036; 83605; 83690; 85025; 85027; 85379; 85652; 86140; 93970; 94640; 96361; 96374; 96375; 99285

== ENCOUNTER → 2018-08-27 | Outpatient (CLI) | payer MEDICARE, OTHER ==
--- NOTE | 2018-08-27 10:55 | MR ---
MR brain without contrast HISTORY: Benign paroxysmal vertigo Multiplanar multisequence imaging obtained through the brain Correlation to prior brain MRI dated 10/03/2014 There is no restricted diffusion. There is no hemorrhage or hydrocephalus. There are normal vascular flow voids. Inflammatory changes present within the sphenoid sinus, ethmoid air cells, mucoperiosteal thickening present in the maxillary sinus and frontal sinus. Corpus callosum, pituitary, cervical me dullary junction, cerebellopontine angles are unremarkable. Scattered hyperintensities on inversion r ecovery T2-weighted sequences are noted in the periventricular white matter similar to prior exam, th ere is also some signal abnormality noted in the basal ganglia, small lacunar infarct, focus of encep halomalacia is questioned on the right. The orbits show symmetric appearance. IMPRESSION: Near stable signal changes within the brain, findings may represent chronic small vessel ischemia. No acute brain abnormality. Sinus disease.
== END ==
LOC: RADMRIMAIN 08:28
PROVIDERS: ATTEND Psychiatry & Neurology Neurology
DX: H81.10 Benign paroxysmal vertigo, unspecified ear (principal)
CPT/HCPCS: 70551

== ENCOUNTER 2018-09-16 08:00 | Day surgery (SDC) | payer MEDICARE, OTHER ==
[2018-09-15 12:03] VITALS: BMI 44.4
[~2018-09-16 08:00] MED LIST: LACTATED RINGERS 1,000 ML IV SCH
[2018-09-16 08:50] VITALS: TEMP 97.1
[2018-09-16 09:26] LABS: Glucose,Whole Blood 136 mg/dL (75-99)
[2018-09-16] MEDS ORDERED: MIDAZOLAM 2 MG/2 ML VIAL ONE (09:35)
[2018-09-16] MEDS ORDERED: PROPOFOL 10 MG/ML 20 ML VIAL IV ONE (09:35)
[2018-09-16] MEDS ORDERED: fentaNYL (PF) 50 MCG/ML 2 ML AMP ONE (09:35)
[2018-09-16] MEDS ORDERED: LACTATED RINGERS 1,000 ML IV ONE (09:47)
--- NOTE | 2018-09-16 09:47 | P.PCN ---
Date of Procedure: 09/16/18 Procedure(s) Performed: BRIEF HISTORY: Patient is a 62-year-old, pleasant, female, scheduled for an upper endoscopy with possible dilation as a part of evaluation of progressive dysphagia to solids for the last few months duration. She did have an upper endoscopy with dilation in September 2013 PROCEDURE PERFORMED: Esophagogastroduodenoscopy with biopsy and dilation. PREOPERATIVE DIAGNOSIS: Dysphagia. IV sedation per anesthesia. PROCEDURE: After informed consent was obtained, the patient was brought into the endoscopy unit. IV sedation was administered by Anesthesia under continuous monitoring. Initially the Olympus GIF-140 video endoscope was inserted into the mouth. Esophagus intubated without any difficulty. It was gradually advanced into the stomach and duodenum and carefully examined. The bulb and the second part of the duodenum appeared normal. The scope at this time was withdrawn to th e stomach, adequately insufflated with air, and upon careful examination, mucosa of the antrum, body, cardia and the fundus appeared normal. The scope was then withdrawn into the esophagus. Small sign Hiatal hernia noted. The GE junction was located at 39 cm from the incisors. There was a distal esophageal stricture identified which was dilated using to 10-12 mm TTS balloon for total of 60 seco nds and a sequential fashion. There were linear erosions or ulcerations in the distal esophagus consistent with LA grade C reflux esophagitis. Also there was questionable short segment Walker's esophagus extended from 35-36 cm from the incisors and multiple biopsies were done from this area. The rest of the esophagus appeared normal. Patient tolerated the procedure well. IMPRESSION: 1. Distal esophageal stricture status post balloon dilation using 10-12 mm TTS balloon as described above. 2. Erosions or ulcerations in the distal esophagus consistent with LA grade C reflux esophagitis 3. 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 Small sliding Hiatal hernia. RECOMMENDATIONS: The findings of this examination were discussed with the patient as well as a family. She was advised to follow with the biopsy results. She will stop the Zantac and will be started on Prilosec 20 mg twice daily for 8 weeks after which advised to decrease it to 20 mg daily for maintenance of severe GERD. she was advised to follow up in office in 3 months. .
[2018-09-16 09:56] VITALS: BP 124/70; PULSE 74; RESP 16
== END 2018-09-16 10:24 | disposition home or self-care (01) ==
LOC: ORWHC2ENDO 08:00
PROVIDERS: ATTEND Internal Medicine Gastroenterology
DX: K22.2 Esophageal obstruction (principal); K22.10 Ulcer of esophagus without bleeding; Z88.5 Allergy status to narcotic agent; Z88.8 Allergy status to other drugs, medicaments and biological substances; J45.909 Unspecified asthma, uncomplicated; E11.9 Type 2 diabetes mellitus without complications; K21.0 Gastro-esophageal reflux disease with esophagitis; K44.9 Diaphragmatic hernia without obstruction or gangrene
CPT/HCPCS: 88305; 43239; 43249; J2250; J3010; J2704; C1726